=== PATIENT | female | born 1950 | race Hispanic/Latino ===

== ENCOUNTER → 2021-08-17 | Outpatient (CLI) | payer MEDICARE ==
[~2021-08-17] MED LIST: ATOR10TA69 PO; CARV12.511 PO; CHOL100018 PO; FENO134C PO; FISH1CAP49 PO; FOLI1TAB35 PO; INSU100V12 SQ; L.AC1CAP6 PO; PHOSLOC PO; VITA400T7 PO
== END | disposition home or self-care (01) ==
LOC: SHCH 08:04
PROVIDERS: ATTEND Internal Medicine Cardiovascular Disease
DX: I35.2 Nonrheumatic aortic (valve) stenosis with insufficiency (principal); I51.7 Cardiomegaly
CPT/HCPCS: 93306; 93356

== ENCOUNTER 2022-03-28 13:24 | Inpatient (IN) | payer MEDICARE ==
[~2022-03-28] VITALS: Ht 157.5 cm; Wt 85.7 kg
[~2022-03-28 13:24] MED LIST changes: +ETOMIDATE 20MG VIAL IVP ONE; -FENO134C PO; +FENO134C21 PO; +ROCURONIUM BROMIDE 10MG/1ML 5ML VL IV ONE
[2022-03-28 13:41] LABS: ABG BASE EXCESS -5.5 mmol/L (-2.0-3.0); ABG HCO3 17.4 mmol/L (21.0-28.0); ABG OXYGEN SATURATION 80.8 % (95.0-99.0); ABG PCO2 28 mmHg (32-45)
[2022-03-28] MEDS ORDERED: ALBUTEROL INHALER 90MCG/INH IH ONE (14:00)
[2022-03-28] MEDS ORDERED: DEXAMETHASONE SOD PHOSPHATE 4 MG/ML 1ML VIAL IVP ONE (14:00)
[2022-03-28 14:12] LABS: CREATININE 1.5 mg/dL (0.5-1.5); POTASSIUM 4.9 mmol/L (3.5-5.1)
[2022-03-28 14:16] LABS: ALBUMIN 2.5 g/dL (3.5-5.0)
[2022-03-28 14:25] LABS: BASOPHILS % (AUTO) 0.2 % (0.0-5.0); EOSINOPHILS % (AUTO) 0.2 % (0.0-8.0); HEMATOCRIT 43.5 % (36-48); LYMPHOCYTES % (AUTO) 18.5 % (21.0-51.0); MEAN CORPUSCULAR HEMOGLOBIN 25.7 pg (27.0-33.0); MEAN CORPUSCULAR HGB CONC 30.8 g/dL (32.0-36.0); MEAN CORPUSCULAR VOLUME 83.3 fL (79-99); MONOCYTES % (AUTO) 6.3 % (3.0-13.0); PLATELET COUNT (AUTO) 159 K/uL (130-400); RED BLOOD CELL COUNT(AUTO) 5.22 MIL/uL (4.00-5.50); RED CELL DISTRIBUTION WIDTH 13.2 % (11.0-15.5); WHITE BLOOD COUNT (AUTO) 4.9 K/uL (4.8-10.8)
[2022-03-28 15:12] LABS: B-TYPE NATRIURETIC PEPTIDE 340 pg/mL (0-100)
[2022-03-28 16:27] LABS: HEMOGLOBIN A1C 7.5 % (4.0-6.0)
[2022-03-28] MEDS ORDERED: ALBUTEROL INHALER 90MCG/INH IH PRN (16:30)
[2022-03-28] MEDS ORDERED: PHARMACY COMMUNICATION MISC SCH ×3 (16:30→20:00)
[2022-03-28] MEDS: LEVOFLOXACIN 500 MG/D5W 100 ML 100 ML IV SCH (17:45)
[2022-03-28] MEDS: INSULIN HUMULIN R 100 UNIT/ML 3ML SQ SCH ×2 (17:46→22:00)
[2022-03-28] MEDS ORDERED: MYCO250C7 PO (18:16)
[2022-03-28] MEDS ORDERED: PRED5TAB PO (18:16)
[2022-03-28] MEDS ORDERED: TACR1CAP10 PO (18:16)
[2022-03-28] MEDS ORDERED: MAGN400T51 PO (18:16)
[2022-03-28] MEDS ORDERED: MULT-662 PO (18:16)
[2022-03-28] MEDS: INSULIN GLARGINE 100 UNITS/ML 10 ML VIAL SQ SCH (21:21)
[2022-03-28] MEDS: FAMOTIDINE 20MG VIAL IV SCH (21:21)
[2022-03-28] MEDS: MYCOPHENOLATE MOFETIL 250 MG CAPSULE PO SCH (21:21)
[2022-03-29] VITALS (23 sets, daily range): BP systolic 124–180; BP diastolic 63–106
[2022-03-29] MEDS ORDERED: SODIUM CHLORIDE 7% INHALATION 4 ML VIAL.NEB IH ONE ×2 (07:20→11:51)
[2022-03-29 07:23] LABS: HEMATOCRIT 42.3 % (36-48); LYMPHOCYTES % (AUTO) 14.6 % (21.0-51.0); MEAN CORPUSCULAR HEMOGLOBIN 25.9 pg (27.0-33.0); MEAN CORPUSCULAR HGB CONC 31.2 g/dL (32.0-36.0); MEAN CORPUSCULAR VOLUME 83.1 fL (79-99); NEUTROPHILS % (AUTO) 79.9 % (40.0-77.0); PLATELET COUNT (AUTO) 158 K/uL (130-400); RED BLOOD CELL COUNT(AUTO) 5.09 MIL/uL (4.00-5.50); WHITE BLOOD COUNT (AUTO) 3.8 K/uL (4.8-10.8)
[2022-03-29 07:43] LABS: ALBUMIN 2.3 g/dL (3.5-5.0); CREATININE 1.5 mg/dL (0.5-1.5); PHOSPHORUS 4.1 mg/dL (2.5-4.9); POTASSIUM 4.7 mmol/L (3.5-5.1); TOTAL PROTEIN, SERUM 6.9 g/dL (6.0-8.3)
[2022-03-29] MEDS ORDERED: TACROLIMUS 1 MG CAPSULE PO SCH (08:00)
[2022-03-29] MEDS ORDERED: DEXAMETHASONE SOD PHOSPHATE 4 MG/ML 1ML VIAL IV SCH (09:00)
[2022-03-29] MEDS ORDERED: PREDNISONE 5 MG TABLET PO SCH (09:00)
[2022-03-29] MEDS: LACTOBACILLUS RHAMNOSUS GG 1 EACH CAP.SPRINK PO SCH (09:10)
[2022-03-29] MEDS: Cholecalciferol (Vitamin D3) (Vitamin D3) 1,000 UNIT PO SCH (09:10)
[2022-03-29] MEDS: MYCOPHENOLATE MOFETIL 250 MG CAPSULE PO SCH (09:10)
[2022-03-29] MEDS: INSULIN HUMULIN R 100 UNIT/ML 3ML SQ SCH ×7 (09:18→20:35)
[2022-03-29] MEDS: ENOXAPARIN SODIUM 40 MG/0.4 ML SYRINGE SQ SCH (09:19)
[2022-03-29] MEDS: MAGNESIUM OXIDE 400 MG TABLET PO SCH (09:23)
[2022-03-29] MEDS: MULTIVITAMIN TABLET PO SCH (09:23)
[2022-03-29] MEDS: PHARMACY COMMUNICATION MISC SCH ×2 (09:30→13:30)
[2022-03-29] MEDS ORDERED: PHARMACY COMMUNICATION MISC SCH (14:00)
[2022-03-29] MEDS ORDERED: RENAL DOSE IV PRN (15:30)
[2022-03-29] MEDS ORDERED: DiphenhydrAMINE HCL 50 MG/ML VIAL IVP ONE ×2 (16:00→18:00)
[2022-03-29] MEDS ORDERED: ACETAMINOPHEN 650 MG/20.3 ML UDCUP NG ONE ×2 (16:00→18:00)
[2022-03-29] MEDS: SOLU-MEDROL 125MG VIAL IVP SCH ×2 (16:17→22:47)
[2022-03-29] MEDS: LEVOFLOXACIN 500 MG/D5W 100 ML 100 ML IV SCH (16:17)
[2022-03-29] MEDS ORDERED: TOCILIZUMAB 200MG VIAL 600 MG in 0.9%NACL 100ML 100 ML IV ONE ×2 (16:45→18:30)
[2022-03-29] MEDS ORDERED: COMPOUND IV REFRIGERATED 1 EACH IVSOLN MISC PRN (17:00)
[2022-03-29] MEDS: FAMOTIDINE 20MG VIAL IV SCH (20:26)
[2022-03-29] MEDS: INSULIN GLARGINE 100 UNITS/ML 10 ML VIAL SQ SCH (20:30)
[2022-03-30] VITALS (76 sets, daily range): BP systolic 43–179; BP diastolic 20–116
[2022-03-30] MEDS ORDERED: METOPROLOL TARTRATE 25 MG TAB ONE (00:03)
[2022-03-30] MEDS ORDERED: METOPROLOL SUCCINATE 50 MG TAB.SR.24H PO ONE (00:05)
[2022-03-30] MEDS: METOPROLOL SUCCINATE 25 MG TAB.SR.24H PO SCH (00:36)
[2022-03-30] MEDS: ACETAMINOPHEN 325 MG TAB PO PRN ×2 (03:26→22:54)
[2022-03-30 03:40] LABS: HEMATOCRIT 43.9 % (36-48); LYMPHOCYTES % (AUTO) 14.7 % (21.0-51.0); MEAN CORPUSCULAR HEMOGLOBIN 25.9 pg (27.0-33.0); MEAN CORPUSCULAR VOLUME 83.6 fL (79-99); MONOCYTES % (AUTO) 2.6 % (3.0-13.0); NEUTROPHILS % (AUTO) 82.4 % (40.0-77.0); PLATELET COUNT (AUTO) 166 K/uL (130-400); RED BLOOD CELL COUNT(AUTO) 5.25 MIL/uL (4.00-5.50); RED CELL DISTRIBUTION WIDTH 13.1 % (11.0-15.5); WHITE BLOOD COUNT (AUTO) 3.1 K/uL (4.8-10.8)
[2022-03-30 04:07] LABS: ALBUMIN 2.3 g/dL (3.5-5.0); CREATININE 1.7 mg/dL (0.5-1.5); PHOSPHORUS 3.9 mg/dL (2.5-4.9); POTASSIUM 4.7 mmol/L (3.5-5.1); TOTAL PROTEIN, SERUM 6.9 g/dL (6.0-8.3)
[2022-03-30] MEDS: CLONIDINE HCL 0.1 MG TABLET PO PRN ×2 (05:49→20:55)
[2022-03-30 07:21] LABS: ABG HCO3 18.4 mmol/L (21.0-28.0); ABG OXYGEN SATURATION 93.5 % (95.0-99.0); ABG PCO2 30 mmHg (32-45)
[2022-03-30] MEDS: MAGNESIUM OXIDE 400 MG TABLET PO SCH (08:27)
[2022-03-30] MEDS: ENOXAPARIN SODIUM 40 MG/0.4 ML SYRINGE SQ SCH (08:27)
[2022-03-30] MEDS: SOLU-MEDROL 125MG VIAL IVP SCH ×3 (08:27→22:53)
[2022-03-30] MEDS: Cholecalciferol (Vitamin D3) (Vitamin D3) 1,000 UNIT PO SCH (08:28)
[2022-03-30] MEDS: MULTIVITAMIN TABLET PO SCH (08:28)
[2022-03-30] MEDS: LACTOBACILLUS RHAMNOSUS GG 1 EACH CAP.SPRINK PO SCH (08:28)
[2022-03-30] MEDS: INSULIN HUMULIN R 100 UNIT/ML 3ML SQ SCH ×8 (08:29→20:51)
[2022-03-30] MEDS: LEVOFLOXACIN 500 MG/D5W 100 ML 100 ML IV SCH (16:39)
[2022-03-30] MEDS: FAMOTIDINE 20MG VIAL IV SCH (20:12)
[2022-03-30] MEDS: INSULIN GLARGINE 100 UNITS/ML 10 ML VIAL SQ SCH (20:13)
[2022-03-31] VITALS (29 sets, daily range): BP systolic 80–184; BP diastolic 32–110
[2022-03-31 03:49] LABS: HEMATOCRIT 42.8 % (36-48); MEAN CORPUSCULAR HGB CONC 32.2 g/dL (32.0-36.0); MEAN CORPUSCULAR VOLUME 80.8 fL (79-99); RED BLOOD CELL COUNT(AUTO) 5.3 MIL/uL (4.00-5.50); RED CELL DISTRIBUTION WIDTH 13.1 % (11.0-15.5); WHITE BLOOD COUNT (AUTO) 5.4 K/uL (4.8-10.8)
[2022-03-31 04:10] LABS: CREATININE 1.8 mg/dL (0.5-1.5); MAGNESIUM 2.5 mg/dL (1.80-2.40)
[2022-03-31 05:43] LABS: CRP QUANTITATIVE 58.1 mg/L (0.00-9.0); MAGNESIUM 2.6 mg/dL (1.80-2.40)
[2022-03-31] MEDS: SOLU-MEDROL 125MG VIAL IVP SCH ×3 (06:12→22:40)
[2022-03-31] MEDS: INSULIN GLARGINE 100 UNITS/ML 10 ML VIAL SQ SCH ×2 (06:13→20:28)
[2022-03-31] MEDS: INSULIN HUMULIN R 100 UNIT/ML 3ML SQ SCH ×7 (06:14→20:32)
[2022-03-31] MEDS: PANTOPRAZOLE 40 MG/VIAL IVP SCH (09:54)
[2022-03-31] MEDS: LACTOBACILLUS RHAMNOSUS GG 1 EACH CAP.SPRINK PO SCH (09:54)
[2022-03-31] MEDS: MULTIVITAMIN TABLET PO SCH (09:54)
[2022-03-31] MEDS: MAGNESIUM OXIDE 400 MG TABLET PO SCH (09:54)
[2022-03-31] MEDS: METOPROLOL SUCCINATE 25 MG TAB.SR.24H PO SCH (09:54)
[2022-03-31] MEDS: ENOXAPARIN SODIUM 40 MG/0.4 ML SYRINGE SQ SCH (09:54)
[2022-03-31] MEDS: Cholecalciferol (Vitamin D3) (Vitamin D3) 1,000 UNIT PO SCH (09:55)
[2022-03-31] MEDS ORDERED: FUROSEMIDE 40MG VIAL IV SCH (11:30)
[2022-03-31] MEDS: LEVOFLOXACIN 500 MG/D5W 100 ML 100 ML IV SCH (17:23)
[2022-03-31] MEDS: CLONIDINE HCL 0.1 MG TABLET PO PRN (22:11)
[2022-03-31] MEDS: ACETAMINOPHEN 325 MG TAB PO PRN (22:12)
[2022-04-01] VITALS (24 sets, daily range): BP systolic 103–191; BP diastolic 49–112
[2022-04-01] MEDS ORDERED: ALPRAZOLAM 0.25 MG TABLET PO PRN (00:30)
[2022-04-01] MEDS ORDERED: ALPRAZOLAM 0.5 MG TABLET PO PRN (00:30)
[2022-04-01 04:20] LABS: HEMATOCRIT 42.8 % (36-48); MEAN CORPUSCULAR HEMOGLOBIN 26.2 pg (27.0-33.0); MEAN CORPUSCULAR VOLUME 81.8 fL (79-99); RED BLOOD CELL COUNT(AUTO) 5.23 MIL/uL (4.00-5.50); RED CELL DISTRIBUTION WIDTH 13.2 % (11.0-15.5); WHITE BLOOD COUNT (AUTO) 6.3 K/uL (4.8-10.8)
[2022-04-01 04:51] LABS: CREATININE 2.1 mg/dL (0.5-1.5); MAGNESIUM 2.5 mg/dL (1.80-2.40); POTASSIUM 4.5 mmol/L (3.5-5.1)
[2022-04-01] MEDS: SOLU-MEDROL 125MG VIAL IVP SCH ×3 (06:30→22:11)
[2022-04-01] MEDS: INSULIN HUMULIN R 100 UNIT/ML 3ML SQ SCH ×7 (06:31→21:02)
[2022-04-01] MEDS: INSULIN GLARGINE 100 UNITS/ML 10 ML VIAL SQ SCH ×2 (06:34→21:03)
[2022-04-01] MEDS: LACTOBACILLUS RHAMNOSUS GG 1 EACH CAP.SPRINK PO SCH (09:24)
[2022-04-01] MEDS: MULTIVITAMIN TABLET PO SCH (09:24)
[2022-04-01] MEDS: PANTOPRAZOLE 40 MG/VIAL IVP SCH (09:24)
[2022-04-01] MEDS: MAGNESIUM OXIDE 400 MG TABLET PO SCH (09:24)
[2022-04-01] MEDS: METOPROLOL SUCCINATE 25 MG TAB.SR.24H PO SCH (09:24)
[2022-04-01] MEDS: Cholecalciferol (Vitamin D3) (Vitamin D3) 1,000 UNIT PO SCH (09:24)
[2022-04-01] MEDS: ENOXAPARIN SODIUM 40 MG/0.4 ML SYRINGE SQ SCH (09:25)
[2022-04-01] MEDS ORDERED: LOPERAMIDE HCL 2 MG CAP PO PRN (09:30)
[2022-04-01] MEDS: LEVOFLOXACIN 500 MG/D5W 100 ML 100 ML IV SCH (16:57)
[2022-04-01] MEDS: ACETAMINOPHEN 325 MG TAB PO PRN (22:18)
[2022-04-02] VITALS (25 sets, daily range): BP systolic 92–171; BP diastolic 40–84
[2022-04-02 04:21] LABS: HEMATOCRIT 43.3 % (36-48); MEAN CORPUSCULAR HEMOGLOBIN 25.8 pg (27.0-33.0); MEAN CORPUSCULAR HGB CONC 31.9 g/dL (32.0-36.0); MEAN CORPUSCULAR VOLUME 81.1 fL (79-99); RED BLOOD CELL COUNT(AUTO) 5.34 MIL/uL (4.00-5.50); RED CELL DISTRIBUTION WIDTH 13.2 % (11.0-15.5); WHITE BLOOD COUNT (AUTO) 8.2 K/uL (4.8-10.8)
[2022-04-02 04:33] LABS: CREATININE 1.9 mg/dL (0.5-1.5); MAGNESIUM 2.8 mg/dL (1.80-2.40); POTASSIUM 4.6 mmol/L (3.5-5.1)
[2022-04-02] MEDS: INSULIN HUMULIN R 100 UNIT/ML 3ML SQ SCH ×7 (06:15→20:51)
[2022-04-02] MEDS: SOLU-MEDROL 125MG VIAL IVP SCH ×3 (06:39→22:43)
[2022-04-02] MEDS: INSULIN GLARGINE 100 UNITS/ML 10 ML VIAL SQ SCH ×2 (06:51→20:55)
[2022-04-02] MEDS: LACTOBACILLUS RHAMNOSUS GG 1 EACH CAP.SPRINK PO SCH (08:33)
[2022-04-02] MEDS: MAGNESIUM OXIDE 400 MG TABLET PO SCH (08:33)
[2022-04-02] MEDS: PANTOPRAZOLE 40 MG/VIAL IVP SCH (08:33)
[2022-04-02] MEDS: MULTIVITAMIN TABLET PO SCH (08:33)
[2022-04-02] MEDS: METOPROLOL SUCCINATE 25 MG TAB.SR.24H PO SCH (08:33)
[2022-04-02] MEDS: ENOXAPARIN SODIUM 40 MG/0.4 ML SYRINGE SQ SCH (08:33)
[2022-04-02] MEDS: Cholecalciferol (Vitamin D3) (Vitamin D3) 1,000 UNIT PO SCH (08:35)
[2022-04-02] MEDS: LEVOFLOXACIN 500 MG/D5W 100 ML 100 ML IV SCH (16:03)
[2022-04-02 19:02] LABS: APPEARANCE,URINE CLEAR (CLEAR); BILIRUBIN,URINE NEGATIVE (NEGATIVE); COLOR,URINE YELLOW (YELLOW); GLUCOSE, URINE (UA) NEGATIVE (NEGATIVE); KETONES,URINE NEGATIVE (NEGATIVE); LEUKOCYTE ESTERASE ,URINE NEGATIVE (NEGATIVE); NITRATE,URINE NEGATIVE (NEGATIVE); OCCULT BLOOD,URINE NEGATIVE (NEGATIVE); PH,URINE 5.5 (5.0-8.0); PROTEIN,URINE TRACE mg/dL (NEGATIVE); UROBILINOGEN,URINE 0.2 mg/dL (0.2-1.0)
[2022-04-02 19:13] LABS: BACTERIA,URINE Rare /HPF (None Seen); MUCUS,URINE None Seen LPF (None Seen); SQUAMOUS EPITHELIAL CELL,UR Few /HPF (0-2); URIC ACID CRYSTALS,URINE Rare /LPF (None Seen); WBC,URINE 0-1 /HPF (0-1)
[2022-04-02] MEDS: ACETAMINOPHEN 325 MG TAB PO PRN (22:44)
[2022-04-03] VITALS (24 sets, daily range): BP systolic 83–160; BP diastolic 39–86
[2022-04-03 04:27] LABS: HEMATOCRIT 44.2 % (36-48); MEAN CORPUSCULAR HEMOGLOBIN 25.7 pg (27.0-33.0); MEAN CORPUSCULAR HGB CONC 31.4 g/dL (32.0-36.0); MEAN CORPUSCULAR VOLUME 81.9 fL (79-99); PLATELET COUNT (AUTO) 141 K/uL (130-400); RED CELL DISTRIBUTION WIDTH 13.2 % (11.0-15.5); WHITE BLOOD COUNT (AUTO) 8.2 K/uL (4.8-10.8)
[2022-04-03 04:32] LABS: BAND NEUTROPHILS % (MANUAL) 2 % (0-2); LYMPHOCYTES % (MANUAL) 4 % (22-44); MAN.DIFF COMMENT-IMPRESSION MANUAL DIFFERENTIAL; MONOCYTES % (MANUAL) 2 % (2-9); PLATELET MORPHOLOGY COMMENT ADEQUATE; SEGMENTED NEUTROPHILS % 92 % (40-70)
[2022-04-03 04:44] LABS: ALBUMIN 2.4 g/dL (3.5-5.0); CREATININE 1.5 mg/dL (0.5-1.5); POTASSIUM 4.9 mmol/L (3.5-5.1)
[2022-04-03] MEDS: INSULIN HUMULIN R 100 UNIT/ML 3ML SQ SCH ×7 (05:30→20:46)
[2022-04-03] MEDS: SOLU-MEDROL 125MG VIAL IVP SCH ×3 (06:10→23:20)
[2022-04-03] MEDS: INSULIN GLARGINE 100 UNITS/ML 10 ML VIAL SQ SCH ×2 (06:11→20:47)
[2022-04-03 08:23] LABS: ABG BASE EXCESS 2.1 mmol/L (-2.0-3.0); ABG HCO3 26.5 mmol/L (21.0-28.0); ABG OXYGEN SATURATION 95.5 % (95.0-99.0); ABG PCO2 41 mmHg (32-45)
[2022-04-03] MEDS: PANTOPRAZOLE 40 MG/VIAL IVP SCH (09:07)
[2022-04-03] MEDS: ENOXAPARIN SODIUM 40 MG/0.4 ML SYRINGE SQ SCH ×2 (09:07→20:45)
[2022-04-03] MEDS: MAGNESIUM OXIDE 400 MG TABLET PO SCH (09:07)
[2022-04-03] MEDS: METOPROLOL SUCCINATE 25 MG TAB.SR.24H PO SCH (09:07)
[2022-04-03] MEDS: LACTOBACILLUS RHAMNOSUS GG 1 EACH CAP.SPRINK PO SCH (09:08)
[2022-04-03] MEDS: MULTIVITAMIN TABLET PO SCH (09:08)
[2022-04-03] MEDS: Cholecalciferol (Vitamin D3) (Vitamin D3) 1,000 UNIT PO SCH (09:10)
[2022-04-03] MEDS: GUAIFENESIN SUGAR-FREE 100 MG/5 ML UDCUP PO PRN ×2 (11:35→17:03)
[2022-04-03] MEDS: LEVOFLOXACIN 500 MG/D5W 100 ML 100 ML IV SCH (15:52)
[2022-04-03] MEDS: ACETAMINOPHEN 325 MG TAB PO PRN (23:19)
[2022-04-04] VITALS (22 sets, daily range): BP systolic 99–185; BP diastolic 41–110
[2022-04-04 03:32] LABS: HEMATOCRIT 44.5 % (36-48); MEAN CORPUSCULAR HEMOGLOBIN 25.7 pg (27.0-33.0); NUCLEATED RED BLOOD CELLS 0.2 % (0.0-0.19); PLATELET COUNT (AUTO) 126 K/uL (130-400); RED BLOOD CELL COUNT(AUTO) 5.36 MIL/uL (4.00-5.50); RED CELL DISTRIBUTION WIDTH 13.3 % (11.0-15.5); WHITE BLOOD COUNT (AUTO) 8.2 K/uL (4.8-10.8)
[2022-04-04 03:54] LABS: ALBUMIN 2.3 g/dL (3.5-5.0); CREATININE 1.4 mg/dL (0.5-1.5); MAGNESIUM 2.6 mg/dL (1.80-2.40); POTASSIUM 4.9 mmol/L (3.5-5.1); TOTAL PROTEIN, SERUM 5.8 g/dL (6.0-8.3)
[2022-04-04 04:32] LABS: BAND NEUTROPHILS % (MANUAL) 7 % (0-2); LYMPHOCYTES % (MANUAL) 10 % (22-44); MONOCYTES % (MANUAL) 3 % (2-9); SEGMENTED NEUTROPHILS % 80 % (40-70)
[2022-04-04 04:33] LABS: MAN.DIFF COMMENT-IMPRESSION MANUAL DIFFERENTIAL; PLATELET MORPHOLOGY COMMENT ADEQUATE
[2022-04-04] MEDS: INSULIN GLARGINE 100 UNITS/ML 10 ML VIAL SQ SCH ×2 (06:33→20:53)
[2022-04-04] MEDS: SOLU-MEDROL 125MG VIAL IVP SCH ×2 (06:33→16:24)
[2022-04-04] MEDS: INSULIN HUMULIN R 100 UNIT/ML 3ML SQ SCH ×7 (06:34→20:54)
[2022-04-04 07:17] LABS: HEPATITIS C VIRUS ANTIBODY <0.1 s/co ratio (0.0-0.9)
[2022-04-04] MEDS: MAGNESIUM OXIDE 400 MG TABLET PO SCH (07:54)
[2022-04-04] MEDS: MULTIVITAMIN TABLET PO SCH (07:54)
[2022-04-04] MEDS: PANTOPRAZOLE 40 MG/VIAL IVP SCH (07:54)
[2022-04-04] MEDS: METOPROLOL SUCCINATE 25 MG TAB.SR.24H PO SCH (07:54)
[2022-04-04] MEDS: LACTOBACILLUS RHAMNOSUS GG 1 EACH CAP.SPRINK PO SCH (07:54)
[2022-04-04] MEDS: ENOXAPARIN SODIUM 40 MG/0.4 ML SYRINGE SQ SCH ×2 (07:55→20:52)
[2022-04-04] MEDS: Cholecalciferol (Vitamin D3) (Vitamin D3) 1,000 UNIT PO SCH (09:00)
[2022-04-04] MEDS: ACETAMINOPHEN 325 MG TAB PO PRN (22:33)
[2022-04-04] MEDS: CLONIDINE HCL 0.1 MG TABLET PO PRN (22:34)
[2022-04-04] MEDS: SOLU-MEDROL 40MG VIAL IVP SCH (22:34)
[2022-04-05] VITALS (22 sets, daily range): BP systolic 96–155; BP diastolic 31–121
[2022-04-05 03:46] LABS: BASOPHILS % (AUTO) 0.1 % (0.0-5.0); EOSINOPHILS % (AUTO) 0.8 % (0.0-8.0); HEMATOCRIT 44.2 % (36-48); LYMPHOCYTES % (AUTO) 3.6 % (21.0-51.0); MEAN CORPUSCULAR HEMOGLOBIN 26.1 pg (27.0-33.0); MEAN CORPUSCULAR HGB CONC 31.2 g/dL (32.0-36.0); MEAN CORPUSCULAR VOLUME 83.7 fL (79-99); MONOCYTES % (AUTO) 1.8 % (3.0-13.0); NEUTROPHILS % (AUTO) 91.2 % (40.0-77.0); PLATELET COUNT (AUTO) 178 K/uL (130-400); RED BLOOD CELL COUNT(AUTO) 5.28 MIL/uL (4.00-5.50); RED CELL DISTRIBUTION WIDTH 13.2 % (11.0-15.5); WHITE BLOOD COUNT (AUTO) 11.5 K/uL (4.8-10.8)
[2022-04-05 04:01] LABS: B-TYPE NATRIURETIC PEPTIDE 129 pg/mL (0-100)
[2022-04-05 04:03] LABS: ALANINE AMINOTRANSFERASE 58 U/L (12-78); ALBUMIN 2.5 g/dL (3.5-5.0); ASPARTATE AMINOTRANSFERASE 44 U/L (10-37); CARBON DIOXIDE 26 mmol/L (21-32); CHLORIDE 105 mmol/L (101-111); CREATININE 1.2 mg/dL (0.5-1.5); GLOMERULAR FILTR. RATE CALC 47 mL/min (>60); GLUCOSE,RANDOM 109 mg/dL (70-105); POTASSIUM 4.7 mmol/L (3.5-5.1); SODIUM SERUM 140 mmol/L (136-145); TOTAL PROTEIN, SERUM 5.9 g/dL (6.0-8.3); UREA NITROGEN, BLOOD 52 mg/dL (7-18)
[2022-04-05 04:10] LABS: CRP QUANTITATIVE < 2.00 mg/L (0.00-9.0)
[2022-04-05 04:45] LABS: ERYTHROCYTE SEDIMENTATION RATE 3 MM/HR (0-30)
[2022-04-05] MEDS: INSULIN HUMULIN R 100 UNIT/ML 3ML SQ SCH ×7 (06:50→21:21)
[2022-04-05] MEDS: SOLU-MEDROL 40MG VIAL IVP SCH ×3 (07:06→23:02)
[2022-04-05] MEDS: INSULIN GLARGINE 100 UNITS/ML 10 ML VIAL SQ SCH ×2 (07:11→21:18)
[2022-04-05] MEDS: PANTOPRAZOLE 40 MG/VIAL IVP SCH (10:47)
[2022-04-05] MEDS: MAGNESIUM OXIDE 400 MG TABLET PO SCH (10:47)
[2022-04-05] MEDS: METOPROLOL SUCCINATE 25 MG TAB.SR.24H PO SCH (10:48)
[2022-04-05] MEDS: MULTIVITAMIN TABLET PO SCH (10:48)
[2022-04-05] MEDS: Cholecalciferol (Vitamin D3) (Vitamin D3) 1,000 UNIT PO SCH (10:48)
[2022-04-05] MEDS: ENOXAPARIN SODIUM 40 MG/0.4 ML SYRINGE SQ SCH ×2 (10:48→21:17)
[2022-04-05] MEDS: LACTOBACILLUS RHAMNOSUS GG 1 EACH CAP.SPRINK PO SCH (10:48)
[2022-04-05] MEDS ORDERED: DEXAMETHASONE SOD PHOSPHATE 4 MG/ML 1ML VIAL IV SCH (17:00)
[2022-04-05 18:00] LABS: INR 1.2 (0.85-1.15); PROTHROMBIN TIME 12.9 SEC (9.6-11.6)
[2022-04-05 21:05] LABS: ABG BASE EXCESS 1.3 mmol/L (-2.0-3.0); ABG HCO3 26.6 mmol/L (21.0-28.0); ABG OXYGEN SATURATION 91.8 % (95.0-99.0); ABG PCO2 44 mmHg (32-45)
[2022-04-05 23:43] LABS: ABG BASE EXCESS 0.6 mmol/L (-2.0-3.0); ABG HCO3 25.4 mmol/L (21.0-28.0); ABG OXYGEN SATURATION 84.3 % (95.0-99.0); ABG PCO2 42 mmHg (32-45)
[2022-04-06] VITALS (24 sets, daily range): BP systolic 113–161; BP diastolic 34–95
[2022-04-06 01:36] LABS: ABG BASE EXCESS -0.2 mmol/L (-2.0-3.0); ABG HCO3 23.7 mmol/L (21.0-28.0); ABG OXYGEN SATURATION 93.8 % (95.0-99.0); ABG PCO2 36 mmHg (32-45)
[2022-04-06 04:49] LABS: BASOPHILS % (AUTO) 0.2 % (0.0-5.0); EOSINOPHILS % (AUTO) 3.3 % (0.0-8.0); HEMATOCRIT 46.8 % (36-48); MEAN CORPUSCULAR HEMOGLOBIN 25.8 pg (27.0-33.0); MEAN CORPUSCULAR VOLUME 83.4 fL (79-99); MONOCYTES % (AUTO) 1.3 % (3.0-13.0); NEUTROPHILS % (AUTO) 89.5 % (40.0-77.0); PLATELET COUNT (AUTO) 148 K/uL (130-400); RED BLOOD CELL COUNT(AUTO) 5.61 MIL/uL (4.00-5.50); RED CELL DISTRIBUTION WIDTH 13.4 % (11.0-15.5); WHITE BLOOD COUNT (AUTO) 12.3 K/uL (4.8-10.8)
[2022-04-06 05:13] LABS: ALANINE AMINOTRANSFERASE 60 U/L (12-78); ALBUMIN 2.6 g/dL (3.5-5.0); ASPARTATE AMINOTRANSFERASE 53 U/L (10-37); CARBON DIOXIDE 28 mmol/L (21-32); CHLORIDE 105 mmol/L (101-111); CREATININE 1.1 mg/dL (0.5-1.5); GLOMERULAR FILTR. RATE CALC 52 mL/min (>60); GLUCOSE,RANDOM 112 mg/dL (70-105); SODIUM SERUM 140 mmol/L (136-145); UREA NITROGEN, BLOOD 47 mg/dL (7-18)
[2022-04-06 05:40] LABS: B-TYPE NATRIURETIC PEPTIDE 84 pg/mL (0-100)
[2022-04-06 05:41] LABS: CRP QUANTITATIVE < 2.00 mg/L (0.00-9.0)
[2022-04-06] MEDS: INSULIN HUMULIN R 100 UNIT/ML 3ML SQ SCH ×5 (06:29→21:13)
[2022-04-06 06:34] LABS: ERYTHROCYTE SEDIMENTATION RATE 2 MM/HR (0-30)
[2022-04-06] MEDS: SOLU-MEDROL 40MG VIAL IVP SCH (06:35)
[2022-04-06] MEDS: INSULIN GLARGINE 100 UNITS/ML 10 ML VIAL SQ SCH ×2 (06:37→21:14)
[2022-04-06 06:47] LABS: ABG HCO3 24.8 mmol/L (21.0-28.0); ABG OXYGEN SATURATION 93.6 % (95.0-99.0); ABG PCO2 41 mmHg (32-45)
[2022-04-06] MEDS: MAGNESIUM OXIDE 400 MG TABLET PO SCH (08:13)
[2022-04-06] MEDS: PANTOPRAZOLE 40 MG/VIAL IVP SCH (08:13)
[2022-04-06] MEDS: LACTOBACILLUS RHAMNOSUS GG 1 EACH CAP.SPRINK PO SCH (08:13)
[2022-04-06] MEDS: MULTIVITAMIN TABLET PO SCH (08:13)
[2022-04-06] MEDS: ENOXAPARIN SODIUM 40 MG/0.4 ML SYRINGE SQ SCH ×2 (08:14→21:15)
[2022-04-06] MEDS: METOPROLOL SUCCINATE 25 MG TAB.SR.24H PO SCH (08:14)
[2022-04-06] MEDS: Cholecalciferol (Vitamin D3) (Vitamin D3) 1,000 UNIT PO SCH (08:15)
[2022-04-06] MEDS: SOLU-MEDROL 125MG VIAL IVP SCH ×2 (09:48→16:42)
[2022-04-06] MEDS ORDERED: SOLU-MEDROL 40MG VIAL IVP SCH (15:30)
[2022-04-07] VITALS (22 sets, daily range): BP systolic 82–155; BP diastolic 30–115
[2022-04-07] MEDS: ACETAMINOPHEN 325 MG TAB PO PRN (01:02)
[2022-04-07] MEDS: SOLU-MEDROL 125MG VIAL IVP SCH ×3 (02:22→17:13)
[2022-04-07 03:46] LABS: BASOPHILS % (AUTO) 0.1 % (0.0-5.0); EOSINOPHILS % (AUTO) 1.2 % (0.0-8.0); HEMATOCRIT 39.7 % (36-48); LYMPHOCYTES % (AUTO) 4.8 % (21.0-51.0); MEAN CORPUSCULAR HEMOGLOBIN 26.1 pg (27.0-33.0); MEAN CORPUSCULAR VOLUME 84.1 fL (79-99); MONOCYTES % (AUTO) 1.5 % (3.0-13.0); NEUTROPHILS % (AUTO) 89.9 % (40.0-77.0); PLATELET COUNT (AUTO) 121 K/uL (130-400); RED BLOOD CELL COUNT(AUTO) 4.72 MIL/uL (4.00-5.50); RED CELL DISTRIBUTION WIDTH 13.2 % (11.0-15.5); WHITE BLOOD COUNT (AUTO) 9.4 K/uL (4.8-10.8)
[2022-04-07 04:09] LABS: ALANINE AMINOTRANSFERASE 55 U/L (12-78); ALBUMIN 2.3 g/dL (3.5-5.0); ASPARTATE AMINOTRANSFERASE 42 U/L (10-37); CARBON DIOXIDE 29 mmol/L (21-32); CHLORIDE 103 mmol/L (101-111); CRP QUANTITATIVE < 2.00 mg/L (0.00-9.0); GLOMERULAR FILTR. RATE CALC 58 mL/min (>60); GLUCOSE,RANDOM 249 mg/dL (70-105); SODIUM SERUM 138 mmol/L (136-145); TOTAL PROTEIN, SERUM 5.4 g/dL (6.0-8.3); UREA NITROGEN, BLOOD 46 mg/dL (7-18)
[2022-04-07 04:21] LABS: B-TYPE NATRIURETIC PEPTIDE 94 pg/mL (0-100)
[2022-04-07 04:46] LABS: ERYTHROCYTE SEDIMENTATION RATE 2 MM/HR (0-30)
[2022-04-07] MEDS: INSULIN GLARGINE 100 UNITS/ML 10 ML VIAL SQ SCH ×2 (06:27→20:57)
[2022-04-07] MEDS: INSULIN HUMULIN R 100 UNIT/ML 3ML SQ SCH ×4 (06:29→20:58)
[2022-04-07] MEDS: PANTOPRAZOLE 40 MG/VIAL IVP SCH (08:50)
[2022-04-07] MEDS: MAGNESIUM OXIDE 400 MG TABLET PO SCH (08:51)
[2022-04-07] MEDS: METOPROLOL SUCCINATE 25 MG TAB.SR.24H PO SCH (08:51)
[2022-04-07] MEDS: LACTOBACILLUS RHAMNOSUS GG 1 EACH CAP.SPRINK PO SCH (08:51)
[2022-04-07] MEDS: MULTIVITAMIN TABLET PO SCH (08:51)
[2022-04-07] MEDS: Cholecalciferol (Vitamin D3) (Vitamin D3) 1,000 UNIT PO SCH (08:51)
[2022-04-07] MEDS: ENOXAPARIN SODIUM 40 MG/0.4 ML SYRINGE SQ SCH ×2 (08:52→20:56)
[2022-04-07 09:48] LABS: ABG BASE EXCESS 2.9 mmol/L (-2.0-3.0); ABG HCO3 27.5 mmol/L (21.0-28.0); ABG OXYGEN SATURATION 91.4 % (95.0-99.0); ABG PCO2 42 mmHg (32-45)
[2022-04-07] MEDS ORDERED: FUROSEMIDE 20MG VIAL IV SCH (13:00)
[2022-04-07] MEDS: MAGNESIUM HYDROXIDE 30 ML/UDCUP PO PRN ×3 (15:23→23:36)
[2022-04-07] MEDS: FUROSEMIDE 20MG VIAL IV SCH (20:56)
[2022-04-07] MEDS ORDERED: BISACODYL 10 MG SUPP.RECT RC ONE (21:30)
[2022-04-08] VITALS (27 sets, daily range): BP systolic 102–173; BP diastolic 30–98
[2022-04-08] MEDS: FUROSEMIDE 20MG VIAL IV SCH ×2 (01:59→08:00)
[2022-04-08] MEDS: SOLU-MEDROL 125MG VIAL IVP SCH ×3 (01:59→18:00)
[2022-04-08] MEDS: ACETAMINOPHEN 325 MG TAB PO PRN (04:25)
[2022-04-08 04:42] LABS: BASOPHILS % (AUTO) 0.2 % (0.0-5.0); EOSINOPHILS % (AUTO) 0.3 % (0.0-8.0); HEMATOCRIT 45.5 % (36-48); LYMPHOCYTES % (AUTO) 3.7 % (21.0-51.0); MEAN CORPUSCULAR HEMOGLOBIN 26.1 pg (27.0-33.0); MEAN CORPUSCULAR VOLUME 84.3 fL (79-99); MONOCYTES % (AUTO) 1.2 % (3.0-13.0); NEUTROPHILS % (AUTO) 91.8 % (40.0-77.0); PLATELET COUNT (AUTO) 141 K/uL (130-400); RED CELL DISTRIBUTION WIDTH 13.3 % (11.0-15.5); WHITE BLOOD COUNT (AUTO) 16.6 K/uL (4.8-10.8)
[2022-04-08 05:07] LABS: ALBUMIN 2.7 g/dL (3.5-5.0)
[2022-04-08] MEDS: POLYETHYLENE GLYCOL 3350 17 GM POWD.PACK PO ONE ×2 (05:23→05:52)
[2022-04-08 06:29] LABS: ABG BASE EXCESS 4.2 mmol/L (-2.0-3.0); ABG HCO3 28.5 mmol/L (21.0-28.0); ABG OXYGEN SATURATION 78.5 % (95.0-99.0); ABG PCO2 41 mmHg (32-45)
[2022-04-08] MEDS: INSULIN HUMULIN R 100 UNIT/ML 3ML SQ SCH ×4 (06:46→20:25)
[2022-04-08] MEDS: INSULIN GLARGINE 100 UNITS/ML 10 ML VIAL SQ SCH ×2 (06:46→20:24)
[2022-04-08] MEDS: PANTOPRAZOLE 40 MG/VIAL IVP SCH (08:28)
[2022-04-08] MEDS: TACROLIMUS 1 MG CAPSULE PO SCH ×2 (08:28→20:13)
[2022-04-08] MEDS: LACTOBACILLUS RHAMNOSUS GG 1 EACH CAP.SPRINK PO SCH (08:28)
[2022-04-08] MEDS: MYCOPHENOLATE MOFETIL 250 MG CAPSULE PO SCH ×2 (08:28→20:13)
[2022-04-08] MEDS: MULTIVITAMIN TABLET PO SCH (08:28)
[2022-04-08] MEDS: METOPROLOL SUCCINATE 25 MG TAB.SR.24H PO SCH (08:28)
[2022-04-08] MEDS: MAGNESIUM OXIDE 400 MG TABLET PO SCH (08:28)
[2022-04-08] MEDS: ENOXAPARIN SODIUM 40 MG/0.4 ML SYRINGE SQ SCH ×2 (08:28→20:14)
[2022-04-08] MEDS: Cholecalciferol (Vitamin D3) (Vitamin D3) 1,000 UNIT PO SCH (09:00)
[2022-04-08] MEDS ORDERED: FENTANYL 2500MCG+NS 250ML 250 ML IV ONE (15:25)
[2022-04-08] MEDS: PROPOFOL 1000 MG/100 ML IV PRN ×2 (16:06→19:45)
[2022-04-08] MEDS ORDERED: LUBIPROSTONE 24 MCG CAP PO SCH (17:00)
[2022-04-08 17:06] LABS: ABG BASE EXCESS 7.5 mmol/L (-2.0-3.0); ABG HCO3 33.4 mmol/L (21.0-28.0); ABG OXYGEN SATURATION 88.8 % (95.0-99.0); ABG PCO2 51 mmHg (32-45)
[2022-04-09] VITALS (58 sets, daily range): BP systolic 46–150; BP diastolic 32–108
[2022-04-09] MEDS: SOLU-MEDROL 125MG VIAL IVP SCH ×3 (01:02→17:31)
[2022-04-09 03:51] LABS: BASOPHILS % (AUTO) 0.3 % (0.0-5.0); EOSINOPHILS % (AUTO) 0.1 % (0.0-8.0); HEMATOCRIT 48.4 % (36-48); MEAN CORPUSCULAR HGB CONC 30.2 g/dL (32.0-36.0); MEAN CORPUSCULAR VOLUME 86.1 fL (79-99); MONOCYTES % (AUTO) 1.1 % (3.0-13.0); NEUTROPHILS % (AUTO) 95.4 % (40.0-77.0); NUCLEATED RED BLOOD CELLS 0.1 % (0.0-0.19); PLATELET COUNT (AUTO) 121 K/uL (130-400); RED BLOOD CELL COUNT(AUTO) 5.62 MIL/uL (4.00-5.50); RED CELL DISTRIBUTION WIDTH 13.5 % (11.0-15.5); WHITE BLOOD COUNT (AUTO) 22.4 K/uL (4.8-10.8)
[2022-04-09 04:09] LABS: ALANINE AMINOTRANSFERASE 33 U/L (12-78); ALBUMIN 2.5 g/dL (3.5-5.0); ASPARTATE AMINOTRANSFERASE 23 U/L (10-37); CARBON DIOXIDE 31 mmol/L (21-32); CHLORIDE 100 mmol/L (101-111); CREATININE 1.3 mg/dL (0.5-1.5); GLOMERULAR FILTR. RATE CALC 43 mL/min (>60); GLUCOSE,RANDOM 121 mg/dL (70-105); POTASSIUM 5.8 mmol/L (3.5-5.1); SODIUM SERUM 138 mmol/L (136-145); TOTAL PROTEIN, SERUM 5.9 g/dL (6.0-8.3); UREA NITROGEN, BLOOD 57 mg/dL (7-18)
[2022-04-09 04:20] LABS: B-TYPE NATRIURETIC PEPTIDE 145 pg/mL (0-100)
[2022-04-09 04:31] LABS: CRP QUANTITATIVE < 2.00 mg/L (0.00-9.0)
[2022-04-09] MEDS: INSULIN HUMULIN R 100 UNIT/ML 3ML SQ SCH ×4 (06:22→20:46)
[2022-04-09] MEDS: INSULIN GLARGINE 100 UNITS/ML 10 ML VIAL SQ SCH ×2 (07:30→20:45)
[2022-04-09] MEDS ORDERED: KAYEXALATE 15GM/60ML PO SCH (09:00)
[2022-04-09] MEDS ORDERED: NOREPINEPHRINE 8MG/NS 250ML PREMIX IV SCH (09:00)
[2022-04-09] MEDS: Cholecalciferol (Vitamin D3) (Vitamin D3) 1,000 UNIT PO SCH (09:00)
[2022-04-09] MEDS ORDERED: NOREPINEPHRINE BITARTRATE 8 MG/NS 250ML IV SCH ×2 (09:00)
[2022-04-09] MEDS: METOPROLOL SUCCINATE 25 MG TAB.SR.24H PO SCH (09:00)
[2022-04-09] MEDS ORDERED: DEXTROSE 5 % AND 0.9 % NACL 1,000 ML IV ONE (09:24)
[2022-04-09] MEDS ORDERED: MIDAZOLAM 50MG-0.9% NS 50ML 50 ML BAG IV SCH (09:30)
[2022-04-09] MEDS ORDERED: MIDAZOLAM 100MG-0.9% NS 100ML 100 ML IV ONE (09:32)
[2022-04-09] MEDS: PANTOPRAZOLE 40 MG/VIAL IVP SCH (10:56)
[2022-04-09] MEDS: MYCOPHENOLATE MOFETIL 250 MG CAPSULE PO SCH ×2 (10:56→20:41)
[2022-04-09] MEDS: LACTOBACILLUS RHAMNOSUS GG 1 EACH CAP.SPRINK PO SCH (10:57)
[2022-04-09] MEDS: MULTIVITAMIN TABLET PO SCH (11:00)
[2022-04-09] MEDS ORDERED: 0.9%NACL 1000ML 1,000 ML IV SCH (11:00)
[2022-04-09] MEDS: MAGNESIUM OXIDE 400 MG TABLET PO SCH (11:00)
[2022-04-09] MEDS: TACROLIMUS 1 MG CAPSULE PO SCH ×2 (11:00→20:41)
[2022-04-09] MEDS: ENOXAPARIN SODIUM 40 MG/0.4 ML SYRINGE SQ SCH ×2 (11:01→20:44)
[2022-04-09] MEDS: DEXTROSE 5 % AND 0.9 % NACL 1,000 ML IV SCH ×2 (11:02→19:32)
[2022-04-09] MEDS: MEROPENEM 1 GM VIAL IVP SCH ×2 (11:57→22:47)
[2022-04-09] MEDS ORDERED: SODIUM CHLORIDE 7% INHALATION 4 ML VIAL.NEB IH ONE (12:06)
[2022-04-09] MEDS: LINEZOLID 600 MG/ISO-OSM 300 ML IV SCH ×2 (13:11→22:47)
[2022-04-09] MEDS: MIDAZOLAM 100MG-0.9% NS 100ML 100ML BAG IV SCH (22:48)
[2022-04-09] MEDS: FENTANYL 2500MCG+NS 250ML IV.SOLN IV PRN (22:51)
[2022-04-10] VITALS (43 sets, daily range): BP systolic 95–149; BP diastolic 22–118
[2022-04-10] MEDS: SOLU-MEDROL 125MG VIAL IVP SCH ×3 (02:22→17:01)
[2022-04-10 04:22] LABS: ALANINE AMINOTRANSFERASE 29 U/L (12-78); ALBUMIN 1.9 g/dL (3.5-5.0); ASPARTATE AMINOTRANSFERASE 26 U/L (10-37); CARBON DIOXIDE 28 mmol/L (21-32); CHLORIDE 105 mmol/L (101-111); CREATININE 1.3 mg/dL (0.5-1.5); GLOMERULAR FILTR. RATE CALC 43 mL/min (>60); GLUCOSE,RANDOM 301 mg/dL (70-105); PHOSPHORUS 4.6 mg/dL (2.5-4.9); SODIUM SERUM 140 mmol/L (136-145); TOTAL PROTEIN, SERUM 4.7 g/dL (6.0-8.3); UREA NITROGEN, BLOOD 60 mg/dL (7-18)
[2022-04-10 04:34] LABS: CRP QUANTITATIVE < 2.00 mg/L (0.00-9.0)
[2022-04-10 04:41] LABS: BASOPHILS % (AUTO) 0.1 % (0.0-5.0); HEMATOCRIT 39.2 % (36-48); LYMPHOCYTES % (AUTO) 3.2 % (21.0-51.0); MEAN CORPUSCULAR HEMOGLOBIN 26.7 pg (27.0-33.0); MEAN CORPUSCULAR HGB CONC 30.4 g/dL (32.0-36.0); MEAN CORPUSCULAR VOLUME 87.9 fL (79-99); NEUTROPHILS % (AUTO) 94.7 % (40.0-77.0); NUCLEATED RED BLOOD CELLS 0.3 % (0.0-0.19); RED BLOOD CELL COUNT(AUTO) 4.46 MIL/uL (4.00-5.50); RED CELL DISTRIBUTION WIDTH 13.4 % (11.0-15.5); WHITE BLOOD COUNT (AUTO) 11.5 K/uL (4.8-10.8)
[2022-04-10 05:11] LABS: PLATELET COUNT (AUTO) 83 K/uL (130-400)
[2022-04-10] MEDS: INSULIN GLARGINE 100 UNITS/ML 10 ML VIAL SQ SCH ×2 (06:29→20:41)
[2022-04-10] MEDS: INSULIN HUMULIN R 100 UNIT/ML 3ML SQ SCH ×4 (06:31→20:42)
[2022-04-10] MEDS: DEXTROSE 5 % AND 0.9 % NACL 1,000 ML IV SCH (06:32)
[2022-04-10 08:32] LABS: ABG BASE EXCESS -3.2 mmol/L (-2.0-3.0); ABG HCO3 23.5 mmol/L (21.0-28.0); ABG PCO2 49 mmHg (32-45)
[2022-04-10] MEDS: ENOXAPARIN SODIUM 40 MG/0.4 ML SYRINGE SQ SCH ×2 (09:00→19:23)
[2022-04-10] MEDS: METOPROLOL SUCCINATE 25 MG TAB.SR.24H PO SCH (09:00)
[2022-04-10] MEDS: Cholecalciferol (Vitamin D3) (Vitamin D3) 1,000 UNIT PO SCH (09:00)
[2022-04-10] MEDS: PANTOPRAZOLE 40 MG/VIAL IVP SCH (09:05)
[2022-04-10] MEDS: MYCOPHENOLATE MOFETIL 250 MG CAPSULE PO SCH ×2 (09:06→20:39)
[2022-04-10] MEDS: MULTIVITAMIN TABLET PO SCH (09:06)
[2022-04-10] MEDS: TACROLIMUS 1 MG CAPSULE PO SCH ×2 (09:06→20:39)
[2022-04-10] MEDS: MAGNESIUM OXIDE 400 MG TABLET PO SCH (09:06)
[2022-04-10] MEDS: LACTOBACILLUS RHAMNOSUS GG 1 EACH CAP.SPRINK PO SCH (09:06)
[2022-04-10] MEDS: LINEZOLID 600 MG/ISO-OSM 300 ML IV SCH (11:26)
[2022-04-10] MEDS: MEROPENEM 1 GM VIAL IVP SCH (11:26)
[2022-04-10] MEDS ORDERED: GLUCAGON 1MG KIT 1 MG ML IM PRN (12:30)
[2022-04-10] MEDS ORDERED: DEXTROSE 50%-WATER 50 ML DISP.SYRIN IV PRN (12:30)
[2022-04-10] MEDS ORDERED: CISATRACURIUM BESYLATE 100 MG in 0.9%NACL 100ML 100 ML IV SCH (16:00)
[2022-04-10] MEDS: MIDAZOLAM 100MG-0.9% NS 100ML 100ML BAG IV SCH (16:36)
[2022-04-10 16:51] LABS: ABG BASE EXCESS -2.2 mmol/L (-2.0-3.0); ABG HCO3 23.1 mmol/L (21.0-28.0); ABG OXYGEN SATURATION 92.5 % (95.0-99.0); ABG PCO2 42 mmHg (32-45)
[2022-04-10] MEDS: CISATRACURIUM BESYLATE 100 MG in 0.9%NACL 100ML 100 ML IV SCH (17:01)
[2022-04-10] MEDS: FENTANYL 2500MCG+NS 250ML IV.SOLN IV PRN (19:50)
[2022-04-11] VITALS (73 sets, daily range): BP systolic 82–155; BP diastolic 16–97
[2022-04-11] MEDS: MEROPENEM 1 GM VIAL IVP SCH ×3 (00:10→23:26)
[2022-04-11] MEDS: LINEZOLID 600 MG/ISO-OSM 300 ML IV SCH ×3 (00:10→23:26)
[2022-04-11] MEDS: INSULIN HUMULIN R 100 UNIT/ML 3ML SQ SCH ×7 (00:20→23:46)
[2022-04-11] MEDS: SOLU-MEDROL 125MG VIAL IVP SCH ×3 (02:05→18:02)
[2022-04-11 03:41] LABS: HEMATOCRIT 42.6 % (36-48); MEAN CORPUSCULAR HEMOGLOBIN 26.1 pg (27.0-33.0); MEAN CORPUSCULAR HGB CONC 28.9 g/dL (32.0-36.0); MEAN CORPUSCULAR VOLUME 90.3 fL (79-99); NUCLEATED RED BLOOD CELLS 0.2 % (0.0-0.19); PLATELET COUNT (AUTO) 79 K/uL (130-400); RED BLOOD CELL COUNT(AUTO) 4.72 MIL/uL (4.00-5.50); RED CELL DISTRIBUTION WIDTH 13.5 % (11.0-15.5); WHITE BLOOD COUNT (AUTO) 12.2 K/uL (4.8-10.8)
[2022-04-11 03:55] LABS: ALANINE AMINOTRANSFERASE 34 U/L (12-78); ALBUMIN 2.1 g/dL (3.5-5.0); ASPARTATE AMINOTRANSFERASE 36 U/L (10-37); CARBON DIOXIDE 30 mmol/L (21-32); CHLORIDE 102 mmol/L (101-111); CREATININE 1.4 mg/dL (0.5-1.5); GLOMERULAR FILTR. RATE CALC 39 mL/min (>60); GLUCOSE,RANDOM 258 mg/dL (70-105); POTASSIUM 5.2 mmol/L (3.5-5.1); SODIUM SERUM 136 mmol/L (136-145); TOTAL PROTEIN, SERUM 5.3 g/dL (6.0-8.3); UREA NITROGEN, BLOOD 71 mg/dL (7-18)
[2022-04-11 03:59] LABS: CRP QUANTITATIVE < 2.00 mg/L (0.00-9.0)
[2022-04-11 04:08] LABS: LYMPHOCYTES % (MANUAL) 3 % (22-44); MAN.DIFF COMMENT-IMPRESSION MANUAL DIFFERENTIAL; MONOCYTES % (MANUAL) 4 % (2-9); PLATELET MORPHOLOGY COMMENT SLIGHTLY DECREASED; SEGMENTED NEUTROPHILS % 93 % (40-70)
[2022-04-11] MEDS: MAGNESIUM OXIDE 400 MG TABLET PO SCH (07:56)
[2022-04-11] MEDS: LACTOBACILLUS RHAMNOSUS GG 1 EACH CAP.SPRINK PO SCH (08:24)
[2022-04-11] MEDS: MYCOPHENOLATE MOFETIL 250 MG CAPSULE PO SCH ×2 (08:24→20:02)
[2022-04-11] MEDS: MULTIVITAMIN TABLET PO SCH (08:24)
[2022-04-11] MEDS: PANTOPRAZOLE 40 MG/VIAL IVP SCH (08:24)
[2022-04-11] MEDS: ENOXAPARIN SODIUM 40 MG/0.4 ML SYRINGE SQ SCH (08:25)
[2022-04-11] MEDS: METOPROLOL SUCCINATE 25 MG TAB.SR.24H PO SCH (08:25)
[2022-04-11] MEDS: TACROLIMUS 1 MG CAPSULE PO SCH ×2 (08:25→20:01)
[2022-04-11] MEDS: INSULIN GLARGINE 100 UNITS/ML 10 ML VIAL SQ SCH ×2 (08:28→20:00)
[2022-04-11] MEDS: Cholecalciferol (Vitamin D3) (Vitamin D3) 1,000 UNIT PO SCH (09:03)
[2022-04-11] MEDS: MIDAZOLAM 100MG-0.9% NS 100ML 100ML BAG IV SCH ×2 (09:51→22:22)
[2022-04-11] MEDS: FENTANYL 2500MCG+NS 250ML IV.SOLN IV PRN ×2 (12:40→23:25)
[2022-04-11] MEDS: CISATRACURIUM BESYLATE 100 MG in 0.9%NACL 100ML 100 ML IV SCH ×2 (13:24→23:25)
[2022-04-11 14:59] LABS: ABG BASE EXCESS -1.7 mmol/L (-2.0-3.0); ABG HCO3 25.2 mmol/L (21.0-28.0); ABG OXYGEN SATURATION 91.2 % (95.0-99.0); ABG PCO2 51 mmHg (32-45)
[2022-04-11] MEDS ORDERED: ALBUMIN (HUMAN) 25% 50 ML IV SCH (15:00)
[2022-04-11] MEDS: PHARMACY COMMUNICATION MISC SCH ×2 (15:30→15:37)
[2022-04-11] MEDS ORDERED: ALBUMIN (HUMAN) 25% 50 ML IV ONE (16:30)
[2022-04-11] MEDS: FUROSEMIDE 40MG VIAL IV SCH ×2 (16:37→22:22)
[2022-04-11] MEDS ORDERED: PHARMACY COMMUNICATION MISC SCH (18:30)
[2022-04-12] VITALS (41 sets, daily range): BP systolic 94–133; BP diastolic 24–76
[2022-04-12] MEDS: SOLU-MEDROL 125MG VIAL IVP SCH ×3 (02:53→17:28)
[2022-04-12 04:06] LABS: HEMATOCRIT 39.5 % (36-48); MEAN CORPUSCULAR HGB CONC 29.4 g/dL (32.0-36.0); MEAN CORPUSCULAR VOLUME 88.6 fL (79-99); NUCLEATED RED BLOOD CELLS 0.4 % (0.0-0.19); RED BLOOD CELL COUNT(AUTO) 4.46 MIL/uL (4.00-5.50); RED CELL DISTRIBUTION WIDTH 13.5 % (11.0-15.5); WHITE BLOOD COUNT (AUTO) 6.8 K/uL (4.8-10.8)
[2022-04-12 04:22] LABS: CREATININE 1.3 mg/dL (0.5-1.5); MAGNESIUM 3.2 mg/dL (1.80-2.40); POTASSIUM 4.1 mmol/L (3.5-5.1); TOTAL PROTEIN, SERUM 4.7 g/dL (6.0-8.3)
[2022-04-12] MEDS: INSULIN HUMULIN R 100 UNIT/ML 3ML SQ SCH ×6 (04:39→20:02)
[2022-04-12 07:49] LABS: ABG BASE EXCESS 1.8 mmol/L (-2.0-3.0); ABG OXYGEN SATURATION 87.6 % (95.0-99.0); ABG PCO2 50 mmHg (32-45)
[2022-04-12] MEDS: TACROLIMUS 1 MG CAPSULE PO SCH ×2 (07:56→20:04)
[2022-04-12] MEDS: PANTOPRAZOLE 40 MG/VIAL IVP SCH (07:56)
[2022-04-12] MEDS: MULTIVITAMIN TABLET PO SCH (07:56)
[2022-04-12] MEDS: MYCOPHENOLATE MOFETIL 250 MG CAPSULE PO SCH ×2 (07:56→20:04)
[2022-04-12] MEDS: INSULIN GLARGINE 100 UNITS/ML 10 ML VIAL SQ SCH ×2 (07:56→20:03)
[2022-04-12] MEDS: LACTOBACILLUS RHAMNOSUS GG 1 EACH CAP.SPRINK PO SCH (07:56)
[2022-04-12] MEDS: Cholecalciferol (Vitamin D3) (Vitamin D3) 1,000 UNIT PO SCH (07:57)
[2022-04-12] MEDS: METOPROLOL SUCCINATE 25 MG TAB.SR.24H PO SCH (07:57)
[2022-04-12] MEDS: CISATRACURIUM BESYLATE 100 MG in 0.9%NACL 100ML 100 ML IV SCH ×2 (10:05→23:23)
[2022-04-12] MEDS: FENTANYL 2500MCG+NS 250ML IV.SOLN IV PRN ×2 (10:06→23:23)
[2022-04-12] MEDS: LINEZOLID 600 MG/ISO-OSM 300 ML IV SCH (11:52)
[2022-04-12] MEDS: MEROPENEM 1 GM VIAL IVP SCH ×2 (11:52→23:44)
[2022-04-12] MEDS: MIDAZOLAM 100MG-0.9% NS 100ML 100ML BAG IV SCH (14:43)
[2022-04-12 15:25] LABS: INR 1.11 (0.85-1.15)
[2022-04-13] VITALS (43 sets, daily range): BP systolic 91–128; BP diastolic 33–78
[2022-04-13] MEDS: INSULIN HUMULIN R 100 UNIT/ML 3ML SQ SCH ×11 (00:10→20:00)
[2022-04-13] MEDS: SOLU-MEDROL 125MG VIAL IVP SCH ×3 (02:22→17:14)
[2022-04-13] MEDS: MIDAZOLAM 100MG-0.9% NS 100ML 100ML BAG IV SCH ×2 (02:30→15:26)
[2022-04-13] MEDS: CISATRACURIUM BESYLATE 100 MG in 0.9%NACL 100ML 100 ML IV SCH ×2 (04:41→14:02)
[2022-04-13 05:00] LABS: BASOPHILS % (AUTO) 0.1 % (0.0-5.0); EOSINOPHILS % (AUTO) 0.1 % (0.0-8.0); HEMATOCRIT 40.7 % (36-48); LYMPHOCYTES % (AUTO) 2.8 % (21.0-51.0); MEAN CORPUSCULAR HEMOGLOBIN 26.4 pg (27.0-33.0); MEAN CORPUSCULAR HGB CONC 29.7 g/dL (32.0-36.0); MEAN CORPUSCULAR VOLUME 88.9 fL (79-99); MONOCYTES % (AUTO) 1.5 % (3.0-13.0); NEUTROPHILS % (AUTO) 94.5 % (40.0-77.0); NUCLEATED RED BLOOD CELLS 0.5 % (0.0-0.19); PLATELET COUNT (AUTO) 58 K/uL (130-400); RED BLOOD CELL COUNT(AUTO) 4.58 MIL/uL (4.00-5.50); RED CELL DISTRIBUTION WIDTH 13.6 % (11.0-15.5); WHITE BLOOD COUNT (AUTO) 8.8 K/uL (4.8-10.8)
[2022-04-13 05:24] LABS: CREATININE 1.2 mg/dL (0.5-1.5); POTASSIUM 4.5 mmol/L (3.5-5.1)
[2022-04-13 07:20] LABS: ABG BASE EXCESS -0.1 mmol/L (-2.0-3.0); ABG HCO3 26.7 mmol/L (21.0-28.0); ABG OXYGEN SATURATION 88.8 % (95.0-99.0); ABG PCO2 53 mmHg (32-45)
[2022-04-13] MEDS: FENTANYL 2500MCG+NS 250ML IV.SOLN IV PRN (07:37)
[2022-04-13] MEDS: METOPROLOL SUCCINATE 25 MG TAB.SR.24H PO SCH (07:41)
[2022-04-13] MEDS: INSULIN GLARGINE 100 UNITS/ML 10 ML VIAL SQ SCH ×2 (07:57→21:00)
[2022-04-13] MEDS: MYCOPHENOLATE MOFETIL 250 MG CAPSULE PO SCH ×2 (08:07→20:10)
[2022-04-13] MEDS: MULTIVITAMIN TABLET PO SCH (08:07)
[2022-04-13] MEDS: Cholecalciferol (Vitamin D3) (Vitamin D3) 1,000 UNIT PO SCH (08:07)
[2022-04-13] MEDS: PANTOPRAZOLE 40 MG/VIAL IVP SCH (08:07)
[2022-04-13] MEDS: LACTOBACILLUS RHAMNOSUS GG 1 EACH CAP.SPRINK PO SCH ×2 (08:07→20:10)
[2022-04-13] MEDS: TACROLIMUS 1 MG CAPSULE PO SCH ×2 (08:07→20:10)
[2022-04-13] MEDS: MEROPENEM 1 GM VIAL IVP SCH (10:09)
[2022-04-13] MEDS ORDERED: GLUCAGON 1MG KIT 1 MG ML IV SCH (20:30)
[2022-04-13] MEDS ORDERED: FENTANYL 2500MCG+NS 250ML 250 ML IV ONE (20:44)
[2022-04-14] VITALS (78 sets, daily range): BP systolic 82–137; BP diastolic 21–113
[2022-04-14] MEDS: MEROPENEM 1 GM VIAL IVP SCH ×2 (00:17→11:03)
[2022-04-14] MEDS: METOCLOPRAMIDE 10 MG/2 ML VIAL IVP SCH ×3 (01:42→20:08)
[2022-04-14] MEDS: SOLU-MEDROL 125MG VIAL IVP SCH ×3 (01:43→17:11)
[2022-04-14] MEDS: CISATRACURIUM BESYLATE 100 MG in 0.9%NACL 100ML 100 ML IV SCH ×2 (02:01→13:32)
[2022-04-14] MEDS: MIDAZOLAM 100MG-0.9% NS 100ML 100ML BAG IV SCH ×2 (03:32→15:23)
[2022-04-14] MEDS: INSULIN HUMULIN R 100 UNIT/ML 3ML SQ SCH ×10 (04:00→21:01)
[2022-04-14 04:33] LABS: BASOPHILS % (AUTO) 0.1 % (0.0-5.0); HEMATOCRIT 38.9 % (36-48); LYMPHOCYTES % (AUTO) 3.9 % (21.0-51.0); MEAN CORPUSCULAR HEMOGLOBIN 26.1 pg (27.0-33.0); MEAN CORPUSCULAR HGB CONC 29.6 g/dL (32.0-36.0); MEAN CORPUSCULAR VOLUME 88.4 fL (79-99); MONOCYTES % (AUTO) 1.4 % (3.0-13.0); NEUTROPHILS % (AUTO) 93.6 % (40.0-77.0); NUCLEATED RED BLOOD CELLS 0.2 % (0.0-0.19); PLATELET COUNT (AUTO) 54 K/uL (130-400); RED CELL DISTRIBUTION WIDTH 13.9 % (11.0-15.5); WHITE BLOOD COUNT (AUTO) 8.8 K/uL (4.8-10.8)
[2022-04-14 05:15] LABS: ALANINE AMINOTRANSFERASE 70 U/L (12-78); ALBUMIN 1.7 g/dL (3.5-5.0); ASPARTATE AMINOTRANSFERASE 55 U/L (10-37); CARBON DIOXIDE 29 mmol/L (21-32); CHLORIDE 103 mmol/L (101-111); CREATININE 1.2 mg/dL (0.5-1.5); GLOMERULAR FILTR. RATE CALC 47 mL/min (>60); GLUCOSE,RANDOM 141 mg/dL (70-105); POTASSIUM 4.8 mmol/L (3.5-5.1); SODIUM SERUM 140 mmol/L (136-145); TOTAL PROTEIN, SERUM 4.4 g/dL (6.0-8.3)
[2022-04-14 05:56] LABS: UREA NITROGEN, BLOOD 101 mg/dL (7-18)
[2022-04-14 07:38] LABS: ABG BASE EXCESS 2.3 mmol/L (-2.0-3.0); ABG OXYGEN SATURATION 81.2 % (95.0-99.0); ABG PCO2 59 mmHg (32-45)
[2022-04-14] MEDS: MYCOPHENOLATE MOFETIL 250 MG CAPSULE PO SCH ×2 (08:01→20:08)
[2022-04-14] MEDS: TACROLIMUS 1 MG CAPSULE PO SCH ×2 (08:01→20:08)
[2022-04-14] MEDS: MULTIVITAMIN TABLET PO SCH (08:01)
[2022-04-14] MEDS: PANTOPRAZOLE 40 MG/VIAL IVP SCH (08:01)
[2022-04-14] MEDS: METOPROLOL SUCCINATE 25 MG TAB.SR.24H PO SCH (08:01)
[2022-04-14] MEDS: LACTOBACILLUS RHAMNOSUS GG 1 EACH CAP.SPRINK PO SCH ×2 (08:01→20:08)
[2022-04-14] MEDS: Cholecalciferol (Vitamin D3) (Vitamin D3) 1,000 UNIT PO SCH (08:35)
[2022-04-14] MEDS: FENTANYL 2500MCG+NS 250ML IV.SOLN IV SCH ×2 (08:40→20:02)
[2022-04-14] MEDS ORDERED: FUROSEMIDE 20MG VIAL IV STA (15:55)
[2022-04-14] MEDS ORDERED: FUROSEMIDE 40MG VIAL IV STA (15:55)
[2022-04-14] MEDS ORDERED: FUROSEMIDE 40MG VIAL ONE (16:00)
[2022-04-14] MEDS ORDERED: FUROSEMIDE 20MG VIAL ONE (16:00)
[2022-04-14 17:39] LABS: ABG BASE EXCESS 2.3 mmol/L (-2.0-3.0); ABG HCO3 29.8 mmol/L (21.0-28.0); ABG OXYGEN SATURATION 79.8 % (95.0-99.0); ABG PCO2 58 mmHg (32-45)
[2022-04-14] MEDS: INSULIN GLARGINE 100 UNITS/ML 10 ML VIAL SQ SCH (21:00)
[2022-04-15] VITALS (44 sets, daily range): BP systolic 92–126; BP diastolic 30–63
[2022-04-15] MEDS: MEROPENEM 1 GM VIAL IVP SCH ×3 (00:08→23:52)
[2022-04-15] MEDS: INSULIN HUMULIN R 100 UNIT/ML 3ML SQ SCH ×12 (00:25→23:34)
[2022-04-15] MEDS: CISATRACURIUM BESYLATE 100 MG in 0.9%NACL 100ML 100 ML IV SCH ×4 (01:51→20:50)
[2022-04-15 02:08] LABS: ABG BASE EXCESS 2.9 mmol/L (-2.0-3.0); ABG HCO3 29.9 mmol/L (21.0-28.0); ABG OXYGEN SATURATION 87.5 % (95.0-99.0); ABG PCO2 57 mmHg (32-45)
[2022-04-15] MEDS: SOLU-MEDROL 125MG VIAL IVP SCH ×3 (02:56→17:24)
[2022-04-15 04:48] LABS: HEMATOCRIT 38.5 % (36-48); LYMPHOCYTES % (AUTO) 4.6 % (21.0-51.0); MEAN CORPUSCULAR HGB CONC 29.6 g/dL (32.0-36.0); MEAN CORPUSCULAR VOLUME 87.7 fL (79-99); MONOCYTES % (AUTO) 1.6 % (3.0-13.0); NEUTROPHILS % (AUTO) 92.4 % (40.0-77.0); PLATELET COUNT (AUTO) 45 K/uL (130-400); RED BLOOD CELL COUNT(AUTO) 4.39 MIL/uL (4.00-5.50); RED CELL DISTRIBUTION WIDTH 14.3 % (11.0-15.5); WHITE BLOOD COUNT (AUTO) 6.4 K/uL (4.8-10.8)
[2022-04-15 04:58] LABS: CREATININE 1.2 mg/dL (0.5-1.5); POTASSIUM 5.1 mmol/L (3.5-5.1)
[2022-04-15] MEDS: MIDAZOLAM 100MG-0.9% NS 100ML 100ML BAG IV SCH (06:03)
[2022-04-15] MEDS: FENTANYL 2500MCG+NS 250ML IV.SOLN IV SCH ×2 (06:08→18:37)
[2022-04-15 07:19] LABS: ABG BASE EXCESS 0.5 mmol/L (-2.0-3.0); ABG HCO3 25.5 mmol/L (21.0-28.0); ABG OXYGEN SATURATION 92.8 % (95.0-99.0); ABG PCO2 42 mmHg (32-45)
[2022-04-15] MEDS: METOPROLOL SUCCINATE 25 MG TAB.SR.24H PO SCH (09:00)
[2022-04-15] MEDS: METOCLOPRAMIDE 10 MG/2 ML VIAL IVP SCH ×5 (09:10→21:21)
[2022-04-15] MEDS: MULTIVITAMIN TABLET PO SCH (09:10)
[2022-04-15] MEDS: LACTOBACILLUS RHAMNOSUS GG 1 EACH CAP.SPRINK PO SCH ×2 (09:10→20:46)
[2022-04-15] MEDS: TACROLIMUS 1 MG CAPSULE PO SCH ×2 (09:10→20:46)
[2022-04-15] MEDS: MYCOPHENOLATE MOFETIL 250 MG CAPSULE PO SCH ×2 (09:10→20:46)
[2022-04-15] MEDS: Cholecalciferol (Vitamin D3) (Vitamin D3) 1,000 UNIT PO SCH (09:11)
[2022-04-15] MEDS: PANTOPRAZOLE 40 MG/VIAL IVP SCH (09:11)
[2022-04-15] MEDS: INSULIN GLARGINE 100 UNITS/ML 10 ML VIAL SQ SCH ×2 (09:14→20:54)
[2022-04-15] MEDS ORDERED: FUROSEMIDE 40MG VIAL IV SCH (13:30)
[2022-04-15] MEDS: FUROSEMIDE 40MG VIAL IV SCH (15:56)
[2022-04-15] MEDS: BALSAM PERU/CASTOR OIL 60 GM TUBE TP SCH (21:20)
[2022-04-16] VITALS (35 sets, daily range): BP systolic 77–116; BP diastolic 25–65
[2022-04-16] MEDS: SOLU-MEDROL 125MG VIAL IVP SCH ×3 (01:48→18:07)
[2022-04-16] MEDS: FUROSEMIDE 40MG VIAL IV SCH ×2 (01:49→15:52)
[2022-04-16] MEDS: MIDAZOLAM 100MG-0.9% NS 100ML 100ML BAG IV SCH (02:02)
[2022-04-16] MEDS: INSULIN HUMULIN R 100 UNIT/ML 3ML SQ SCH ×10 (04:00→23:42)
[2022-04-16 04:08] LABS: HEMATOCRIT 39.9 % (36-48); MEAN CORPUSCULAR HEMOGLOBIN 25.9 pg (27.0-33.0); MEAN CORPUSCULAR HGB CONC 29.8 g/dL (32.0-36.0); MEAN CORPUSCULAR VOLUME 86.9 fL (79-99); PLATELET COUNT (AUTO) 37 K/uL (130-400); RED BLOOD CELL COUNT(AUTO) 4.59 MIL/uL (4.00-5.50); RED CELL DISTRIBUTION WIDTH 14.4 % (11.0-15.5); WHITE BLOOD COUNT (AUTO) 5.9 K/uL (4.8-10.8)
[2022-04-16 04:49] LABS: ALBUMIN 1.9 g/dL (3.5-5.0); CREATININE 1.2 mg/dL (0.5-1.5); POTASSIUM 5.1 mmol/L (3.5-5.1); TOTAL PROTEIN, SERUM 4.5 g/dL (6.0-8.3)
[2022-04-16 04:57] LABS: BAND NEUTROPHILS % (MANUAL) 5 % (0-2); LYMPHOCYTES % (MANUAL) 2 % (22-44); MAN.DIFF COMMENT-IMPRESSION MANUAL DIFFERENTIAL; MONOCYTES % (MANUAL) 3 % (2-9); SEGMENTED NEUTROPHILS % 90 % (40-70)
[2022-04-16 04:58] LABS: PLATELET MORPHOLOGY COMMENT MARKED DECREASE
[2022-04-16] MEDS: METOCLOPRAMIDE 10 MG/2 ML VIAL IVP SCH ×3 (05:00→20:55)
[2022-04-16] MEDS: INSULIN GLARGINE 100 UNITS/ML 10 ML VIAL SQ SCH ×2 (05:57→21:11)
[2022-04-16] MEDS: PANTOPRAZOLE 40 MG/VIAL IVP SCH (08:49)
[2022-04-16] MEDS: Cholecalciferol (Vitamin D3) (Vitamin D3) 1,000 UNIT PO SCH (09:00)
[2022-04-16] MEDS: METOPROLOL SUCCINATE 25 MG TAB.SR.24H PO SCH (09:00)
[2022-04-16] MEDS: MYCOPHENOLATE MOFETIL 250 MG CAPSULE PO SCH ×2 (10:27→20:55)
[2022-04-16] MEDS: MULTIVITAMIN TABLET PO SCH (10:27)
[2022-04-16] MEDS: LACTOBACILLUS RHAMNOSUS GG 1 EACH CAP.SPRINK PO SCH ×2 (10:27→20:55)
[2022-04-16] MEDS: MEROPENEM 1 GM VIAL IVP SCH ×2 (10:28→23:21)
[2022-04-16] MEDS: TACROLIMUS 1 MG CAPSULE PO SCH ×2 (10:28→20:55)
[2022-04-16] MEDS: BALSAM PERU/CASTOR OIL 60 GM TUBE TP SCH ×2 (10:31→21:11)
[2022-04-16 14:01] LABS: ABG BASE EXCESS 3.5 mmol/L (-2.0-3.0); ABG HCO3 28.8 mmol/L (21.0-28.0); ABG OXYGEN SATURATION 83.4 % (95.0-99.0); ABG PCO2 46 mmHg (32-45)
[2022-04-16] MEDS: CISATRACURIUM BESYLATE 100 MG in 0.9%NACL 100ML 100 ML IV SCH (23:38)
[2022-04-16] MEDS: FENTANYL 2500MCG+NS 250ML IV.SOLN IV SCH (23:41)
[2022-04-17] VITALS (68 sets, daily range): BP systolic 68–163; BP diastolic 20–79
[2022-04-17] MEDS: SOLU-MEDROL 125MG VIAL IVP SCH ×3 (02:00→17:12)
[2022-04-17] MEDS: FUROSEMIDE 40MG VIAL IV SCH (02:00)
[2022-04-17 03:54] LABS: ABG BASE EXCESS 2.5 mmol/L (-2.0-3.0); ABG HCO3 29.4 mmol/L (21.0-28.0); ABG OXYGEN SATURATION 85.6 % (95.0-99.0); ABG PCO2 55 mmHg (32-45)
[2022-04-17 04:18] LABS: HEMATOCRIT 41.1 % (36-48); LYMPHOCYTES % (AUTO) 4.3 % (21.0-51.0); MEAN CORPUSCULAR HEMOGLOBIN 25.7 pg (27.0-33.0); MEAN CORPUSCULAR HGB CONC 29.7 g/dL (32.0-36.0); MEAN CORPUSCULAR VOLUME 86.5 fL (79-99); MONOCYTES % (AUTO) 1.6 % (3.0-13.0); NEUTROPHILS % (AUTO) 93.4 % (40.0-77.0); NUCLEATED RED BLOOD CELLS 0.4 % (0.0-0.19); PLATELET COUNT (AUTO) 34 K/uL (130-400); RED BLOOD CELL COUNT(AUTO) 4.75 MIL/uL (4.00-5.50); RED CELL DISTRIBUTION WIDTH 14.6 % (11.0-15.5); WHITE BLOOD COUNT (AUTO) 5.5 K/uL (4.8-10.8)
[2022-04-17] MEDS: INSULIN HUMULIN R 100 UNIT/ML 3ML SQ SCH ×10 (04:19→23:46)
[2022-04-17 04:32] LABS: ALBUMIN 1.9 g/dL (3.5-5.0); CREATININE 1.2 mg/dL (0.5-1.5); PHOSPHORUS 7.5 mg/dL (2.5-4.9); POTASSIUM 5.6 mmol/L (3.5-5.1); TOTAL PROTEIN, SERUM 4.5 g/dL (6.0-8.3)
[2022-04-17] MEDS: INSULIN GLARGINE 100 UNITS/ML 10 ML VIAL SQ SCH ×2 (06:36→20:29)
[2022-04-17] MEDS: METOPROLOL SUCCINATE 25 MG TAB.SR.24H PO SCH (09:00)
[2022-04-17] MEDS: Cholecalciferol (Vitamin D3) (Vitamin D3) 1,000 UNIT PO SCH (09:00)
[2022-04-17] MEDS ORDERED: KAYEXALATE 15GM/60ML PO SCH (10:00)
[2022-04-17] MEDS ORDERED: INSULIN HUMULIN R 100 UNIT/ML 3ML IV ONE (10:00)
[2022-04-17] MEDS ORDERED: DEXTROSE 50%-WATER 50 ML DISP.SYRIN IV ONE (10:00)
[2022-04-17] MEDS: PANTOPRAZOLE 40 MG/VIAL IVP SCH (10:24)
[2022-04-17] MEDS: MEROPENEM 1 GM VIAL IVP SCH ×2 (10:24→23:42)
[2022-04-17] MEDS: METOCLOPRAMIDE 10 MG/2 ML VIAL IVP SCH ×3 (10:24→20:28)
[2022-04-17] MEDS: LACTOBACILLUS RHAMNOSUS GG 1 EACH CAP.SPRINK PO SCH ×2 (10:24→20:28)
[2022-04-17] MEDS: TACROLIMUS 1 MG CAPSULE PO SCH ×2 (10:25→20:28)
[2022-04-17] MEDS: SODIUM BICARB 50MEQ 50ML VIAL IV SCH (10:25)
[2022-04-17] MEDS: MULTIVITAMIN TABLET PO SCH (10:25)
[2022-04-17] MEDS: MYCOPHENOLATE MOFETIL 250 MG CAPSULE PO SCH ×2 (10:25→20:28)
[2022-04-17] MEDS: MIDAZOLAM 100MG-0.9% NS 100ML 100ML BAG IV SCH (10:26)
[2022-04-17] MEDS: BALSAM PERU/CASTOR OIL 60 GM TUBE TP SCH ×2 (10:29→20:30)
[2022-04-17] MEDS: FENTANYL 2500MCG+NS 250ML IV.SOLN IV SCH (14:33)
[2022-04-17] MEDS ORDERED: NOREPINEPHRIN 8MG/250ML NS PMX 250 ML IV ONE (14:55)
[2022-04-17] MEDS ORDERED: PHARMACY COMMUNICATION MISC SCH (15:00)
[2022-04-17] MEDS: NOREPINEPHRIN 8MG/250ML NS PMX 250 ML IV SCH (15:16)
[2022-04-17] MEDS: VASOPRESSIN 20 UNITS in 0.9%NACL 100ML 99 ML IV PRN (19:07)
[2022-04-18] VITALS (88 sets, daily range): BP systolic 83–136; BP diastolic 23–77
[2022-04-18] MEDS: SOLU-MEDROL 125MG VIAL IVP SCH ×3 (01:09→17:06)
[2022-04-18] MEDS: FENTANYL 2500MCG+NS 250ML IV.SOLN IV SCH ×2 (03:52→16:17)
[2022-04-18] MEDS: VASOPRESSIN 20 UNITS in 0.9%NACL 100ML 99 ML IV PRN ×3 (03:53→16:28)
[2022-04-18 03:55] LABS: BASOPHILS % (AUTO) 0.2 % (0.0-5.0); HEMATOCRIT 45.8 % (36-48); MEAN CORPUSCULAR HEMOGLOBIN 26.5 pg (27.0-33.0); MEAN CORPUSCULAR HGB CONC 29.7 g/dL (32.0-36.0); MEAN CORPUSCULAR VOLUME 89.3 fL (79-99); MONOCYTES % (AUTO) 2.6 % (3.0-13.0); NEUTROPHILS % (AUTO) 94.1 % (40.0-77.0); NUCLEATED RED BLOOD CELLS 3.3 % (0.0-0.19); PLATELET COUNT (AUTO) 58 K/uL (130-400); RED BLOOD CELL COUNT(AUTO) 5.13 MIL/uL (4.00-5.50); RED CELL DISTRIBUTION WIDTH 15.9 % (11.0-15.5); WHITE BLOOD COUNT (AUTO) 20.8 K/uL (4.8-10.8)
[2022-04-18] MEDS: INSULIN HUMULIN R 100 UNIT/ML 3ML SQ SCH ×8 (04:00→20:00)
[2022-04-18 04:53] LABS: ALBUMIN 2.3 g/dL (3.5-5.0); CREATININE 1.6 mg/dL (0.5-1.5); MAGNESIUM 4.1 mg/dL (1.80-2.40); PHOSPHORUS 8.5 mg/dL (2.5-4.9); TOTAL PROTEIN, SERUM 5.2 g/dL (6.0-8.3)
[2022-04-18] MEDS ORDERED: KAYEXALATE 15GM/60ML PO ONE ×2 (05:30→09:30)
[2022-04-18] MEDS: METOPROLOL SUCCINATE 25 MG TAB.SR.24H PO SCH (07:32)
[2022-04-18] MEDS ORDERED: DEXTROSE 50%-WATER 50 ML DISP.SYRIN IV ONE (08:00)
[2022-04-18] MEDS ORDERED: INSULIN HUMULIN R 100 UNIT/ML 3ML IV ONE (08:00)
[2022-04-18] MEDS ORDERED: NA ZIRCON CYCLOSIL(LOKELMA 10GM) PO SCH (08:00)
[2022-04-18] MEDS: PANTOPRAZOLE 40 MG/VIAL IVP SCH (08:28)
[2022-04-18 08:29] LABS: ABG BASE EXCESS -1.2 mmol/L (-2.0-3.0); ABG HCO3 27.1 mmol/L (21.0-28.0); ABG OXYGEN SATURATION 89.4 % (95.0-99.0); ABG PCO2 61 mmHg (32-45)
[2022-04-18] MEDS: TACROLIMUS 1 MG CAPSULE PO SCH (08:29)
[2022-04-18] MEDS: LACTOBACILLUS RHAMNOSUS GG 1 EACH CAP.SPRINK PO SCH ×2 (08:29→20:14)
[2022-04-18] MEDS: METOCLOPRAMIDE 10 MG/2 ML VIAL IVP SCH ×3 (08:29→20:14)
[2022-04-18] MEDS: MULTIVITAMIN TABLET PO SCH (08:29)
[2022-04-18] MEDS: MYCOPHENOLATE MOFETIL 250 MG CAPSULE PO SCH (08:29)
[2022-04-18] MEDS: INSULIN GLARGINE 100 UNITS/ML 10 ML VIAL SQ SCH ×2 (08:32→20:15)
[2022-04-18] MEDS: Cholecalciferol (Vitamin D3) (Vitamin D3) 1,000 UNIT PO SCH (08:32)
[2022-04-18] MEDS: BALSAM PERU/CASTOR OIL 60 GM TUBE TP SCH ×2 (08:33→20:15)
[2022-04-18] MEDS: SODIUM BICARB 50MEQ 50ML VIAL IV SCH ×2 (08:34→12:38)
[2022-04-18] MEDS: NOREPINEPHRIN 8MG/250ML NS PMX 250 ML IV SCH ×2 (09:03→21:48)
[2022-04-18] MEDS: MEROPENEM 1 GM VIAL IVP SCH (10:46)
[2022-04-18] MEDS ORDERED: VANCOMYCIN PROTOCOL PER PHARMACY IV SCH (15:30)
[2022-04-18] MEDS: MIDAZOLAM 100MG-0.9% NS 100ML 100ML BAG IV SCH (16:18)
[2022-04-18] MEDS: CISATRACURIUM BESYLATE 100 MG in 0.9%NACL 100ML 100 ML IV SCH (18:18)
[2022-04-19] VITALS (95 sets, daily range): BP systolic 72–149; BP diastolic 23–79
[2022-04-19] MEDS: MEROPENEM 1 GM VIAL IVP SCH ×3 (00:24→22:57)
[2022-04-19] MEDS: INSULIN HUMULIN R 100 UNIT/ML 3ML SQ SCH ×12 (00:45→23:57)
[2022-04-19] MEDS: SOLU-MEDROL 125MG VIAL IVP SCH ×3 (01:35→17:35)
[2022-04-19] MEDS: VASOPRESSIN 20 UNITS in 0.9%NACL 100ML 99 ML IV PRN ×3 (02:21→19:53)
[2022-04-19 03:43] LABS: BASOPHILS % (AUTO) 0.1 % (0.0-5.0); HEMATOCRIT 42.2 % (36-48); LYMPHOCYTES % (AUTO) 5.1 % (21.0-51.0); MEAN CORPUSCULAR HEMOGLOBIN 26.1 pg (27.0-33.0); MEAN CORPUSCULAR HGB CONC 28.9 g/dL (32.0-36.0); MEAN CORPUSCULAR VOLUME 90.2 fL (79-99); MONOCYTES % (AUTO) 2.7 % (3.0-13.0); NEUTROPHILS % (AUTO) 89.4 % (40.0-77.0); NUCLEATED RED BLOOD CELLS 6.1 % (0.0-0.19); PLATELET COUNT (AUTO) 37 K/uL (130-400); RED BLOOD CELL COUNT(AUTO) 4.68 MIL/uL (4.00-5.50); RED CELL DISTRIBUTION WIDTH 15.9 % (11.0-15.5); WHITE BLOOD COUNT (AUTO) 14.7 K/uL (4.8-10.8)
[2022-04-19 03:58] LABS: ALBUMIN 1.8 g/dL (3.5-5.0); CREATININE 1.7 mg/dL (0.5-1.5); POTASSIUM 5.3 mmol/L (3.5-5.1); TOTAL PROTEIN, SERUM 4.6 g/dL (6.0-8.3)
[2022-04-19 04:32] LABS: LYMPHOCYTES % (MANUAL) 4 % (22-44); MAN.DIFF COMMENT-IMPRESSION MANUAL DIFFERENTIAL; SEGMENTED NEUTROPHILS % 96 % (40-70)
[2022-04-19 04:33] LABS: PLATELET MORPHOLOGY COMMENT MARKED DECREASE
[2022-04-19] MEDS: FENTANYL 2500MCG+NS 250ML IV.SOLN IV SCH ×2 (04:43→18:03)
[2022-04-19] MEDS ORDERED: AMIODARONE 150MG VIAL ONE ×2 (05:10→05:14)
[2022-04-19] MEDS ORDERED: PHENYLEPHRINE HCL 10 MG/ML 5ML VIAL IV ONE (05:10)
[2022-04-19] MEDS ORDERED: AMIODARONE 900MG VIAL 540 MG in DEXTROSE 5%-WATER 300 ML IV ONE (05:30)
[2022-04-19] MEDS: AMIODARONE 900MG VIAL 150 MG in DEXTROSE 5%-WATER 100 ML IV SCH (05:50)
[2022-04-19] MEDS: AMIODARONE 900MG VIAL 360 MG in DEXTROSE 5%-WATER 200 ML IV SCH (06:00)
[2022-04-19 06:23] LABS: ABG HCO3 27.5 mmol/L (21.0-28.0); ABG PCO2 62 mmHg (32-45)
[2022-04-19] MEDS: NOREPINEPHRIN 8MG/250ML NS PMX 250 ML IV SCH ×2 (06:27→19:52)
[2022-04-19] MEDS: SODIUM BICARB 50MEQ 50ML VIAL IV SCH ×2 (07:53→09:25)
[2022-04-19] MEDS: METOPROLOL SUCCINATE 25 MG TAB.SR.24H PO SCH (07:54)
[2022-04-19] MEDS: Cholecalciferol (Vitamin D3) (Vitamin D3) 1,000 UNIT PO SCH (07:54)
[2022-04-19] MEDS: INSULIN GLARGINE 100 UNITS/ML 10 ML VIAL SQ SCH ×2 (08:09→21:00)
[2022-04-19] MEDS: PANTOPRAZOLE 40 MG/VIAL IVP SCH (08:10)
[2022-04-19] MEDS: MULTIVITAMIN TABLET PO SCH (08:11)
[2022-04-19] MEDS: METOCLOPRAMIDE 10 MG/2 ML VIAL IVP SCH ×3 (08:11→20:39)
[2022-04-19] MEDS: LACTOBACILLUS RHAMNOSUS GG 1 EACH CAP.SPRINK PO SCH ×2 (08:11→20:39)
[2022-04-19] MEDS: BALSAM PERU/CASTOR OIL 60 GM TUBE TP SCH ×2 (08:11→22:00)
[2022-04-19] MEDS: PHENYLEPHRINE HCL 100 MG in 0.9% NACL 250ML 250 ML IV SCH (11:39)
[2022-04-19] MEDS: CISATRACURIUM BESYLATE 100 MG in 0.9%NACL 100ML 100 ML IV SCH (17:04)
[2022-04-19] MEDS: MIDAZOLAM 100MG-0.9% NS 100ML 100ML BAG IV SCH (17:06)
[2022-04-20] VITALS (65 sets, daily range): BP systolic 93–167; BP diastolic 28–60
[2022-04-20] MEDS: INSULIN HUMULIN R 100 UNIT/ML 3ML SQ SCH ×11 (00:04→23:48)
[2022-04-20] MEDS: PHENYLEPHRINE HCL 100 MG in 0.9% NACL 250ML 250 ML IV SCH ×4 (00:14→20:52)
[2022-04-20] MEDS: SOLU-MEDROL 125MG VIAL IVP SCH ×3 (02:34→17:40)
[2022-04-20 04:28] LABS: BASOPHILS % (AUTO) 0.2 % (0.0-5.0); HEMATOCRIT 40.2 % (36-48); LYMPHOCYTES % (AUTO) 5.5 % (21.0-51.0); MEAN CORPUSCULAR HEMOGLOBIN 26.5 pg (27.0-33.0); MEAN CORPUSCULAR HGB CONC 29.1 g/dL (32.0-36.0); MONOCYTES % (AUTO) 1.8 % (3.0-13.0); NEUTROPHILS % (AUTO) 91.6 % (40.0-77.0); NUCLEATED RED BLOOD CELLS 10.8 % (0.0-0.19); PLATELET COUNT (AUTO) 26 K/uL (130-400); RED BLOOD CELL COUNT(AUTO) 4.42 MIL/uL (4.00-5.50); RED CELL DISTRIBUTION WIDTH 16.4 % (11.0-15.5); WHITE BLOOD COUNT (AUTO) 12.7 K/uL (4.8-10.8)
[2022-04-20 04:44] LABS: ALBUMIN 1.8 g/dL (3.5-5.0); CREATININE 2.1 mg/dL (0.5-1.5); TOTAL PROTEIN, SERUM 4.6 g/dL (6.0-8.3)
[2022-04-20 04:57] LABS: BAND NEUTROPHILS % (MANUAL) 1 % (0-2); LYMPHOCYTES % (MANUAL) 7 % (22-44); MONOCYTES % (MANUAL) 3 % (2-9); SEGMENTED NEUTROPHILS % 89 % (40-70)
[2022-04-20 04:58] LABS: MAN.DIFF COMMENT-IMPRESSION MANUAL DIFFERENTIAL; PLATELET MORPHOLOGY COMMENT MARKED DECREASE
[2022-04-20] MEDS: NOREPINEPHRIN 8MG/250ML NS PMX 250 ML IV SCH (05:10)
[2022-04-20] MEDS: AMIODARONE 900MG VIAL 150 MG in DEXTROSE 5%-WATER 100 ML IV SCH (05:30)
[2022-04-20] MEDS: FENTANYL 2500MCG+NS 250ML IV.SOLN IV SCH ×2 (06:53→19:32)
[2022-04-20] MEDS: INSULIN GLARGINE 100 UNITS/ML 10 ML VIAL SQ SCH ×2 (07:03→20:23)
[2022-04-20] MEDS: SODIUM BICARB 50MEQ 50ML VIAL IV SCH ×2 (08:00→09:10)
[2022-04-20] MEDS: AMIODARONE 900MG VIAL 540 MG in DEXTROSE 5%-WATER 300 ML IV SCH (08:19)
[2022-04-20] MEDS: Cholecalciferol (Vitamin D3) (Vitamin D3) 1,000 UNIT PO SCH (08:26)
[2022-04-20] MEDS: METOPROLOL SUCCINATE 25 MG TAB.SR.24H PO SCH (09:00)
[2022-04-20] MEDS: PANTOPRAZOLE 40 MG/VIAL IVP SCH (09:09)
[2022-04-20] MEDS: LACTOBACILLUS RHAMNOSUS GG 1 EACH CAP.SPRINK PO SCH ×2 (09:09→20:22)
[2022-04-20] MEDS: MULTIVITAMIN TABLET PO SCH (09:09)
[2022-04-20] MEDS: METOCLOPRAMIDE 10 MG/2 ML VIAL IVP SCH ×3 (09:09→20:22)
[2022-04-20] MEDS: BALSAM PERU/CASTOR OIL 60 GM TUBE TP SCH ×2 (09:10→21:00)
[2022-04-20 09:11] LABS: ABG BASE EXCESS -0.9 mmol/L (-2.0-3.0); ABG HCO3 26.8 mmol/L (21.0-28.0); ABG OXYGEN SATURATION 77.2 % (95.0-99.0); ABG PCO2 57 mmHg (32-45)
[2022-04-20] MEDS: MEROPENEM 1 GM VIAL IVP SCH ×2 (12:23→22:40)
[2022-04-20] MEDS: VASOPRESSIN 20 UNITS in 0.9%NACL 100ML 99 ML IV PRN ×2 (14:04→20:56)
[2022-04-20] MEDS: MIDAZOLAM 100MG-0.9% NS 100ML 100ML BAG IV SCH (18:10)
[2022-04-20 19:47] LABS: HEMATOCRIT 37.1 % (36-48); MEAN CORPUSCULAR HGB CONC 29.4 g/dL (32.0-36.0); MEAN CORPUSCULAR VOLUME 88.5 fL (79-99); NUCLEATED RED BLOOD CELLS 9.5 % (0.0-0.19); PLATELET COUNT (AUTO) 22 K/uL (130-400); RED BLOOD CELL COUNT(AUTO) 4.19 MIL/uL (4.00-5.50); RED CELL DISTRIBUTION WIDTH 16.6 % (11.0-15.5); WHITE BLOOD COUNT (AUTO) 7.2 K/uL (4.8-10.8)
[2022-04-20 20:19] LABS: BAND NEUTROPHILS % (MANUAL) 2 % (0-2); EOSINOPHILS % (MANUAL) 1 % (1-6); LYMPHOCYTES % (MANUAL) 4 % (22-44); MAN.DIFF COMMENT-IMPRESSION MANUAL DIFFERENTIAL; MONOCYTES % (MANUAL) 1 % (2-9); SEGMENTED NEUTROPHILS % 92 % (40-70)
[2022-04-20 20:20] LABS: PLATELET MORPHOLOGY COMMENT MARKED DECREASE
[2022-04-21] VITALS (24 sets, daily range): BP systolic 57–145; BP diastolic 15–59
[2022-04-21] MEDS: SOLU-MEDROL 125MG VIAL IVP SCH ×3 (00:50→16:45)
[2022-04-21] MEDS: AMIODARONE 900MG VIAL 360 MG in DEXTROSE 5%-WATER 200 ML IV SCH (02:41)
[2022-04-21] MEDS: INSULIN HUMULIN R 100 UNIT/ML 3ML SQ SCH ×8 (04:00→20:14)
[2022-04-21 05:09] LABS: BASOPHILS % (AUTO) 0.2 % (0.0-5.0); HEMATOCRIT 34.2 % (36-48); MEAN CORPUSCULAR HEMOGLOBIN 26.1 pg (27.0-33.0); MEAN CORPUSCULAR HGB CONC 29.8 g/dL (32.0-36.0); MEAN CORPUSCULAR VOLUME 87.5 fL (79-99); NEUTROPHILS % (AUTO) 92.4 % (40.0-77.0); NUCLEATED RED BLOOD CELLS 9.2 % (0.0-0.19); PLATELET COUNT (AUTO) 15 K/uL (130-400); RED BLOOD CELL COUNT(AUTO) 3.91 MIL/uL (4.00-5.50); RED CELL DISTRIBUTION WIDTH 16.5 % (11.0-15.5); WHITE BLOOD COUNT (AUTO) 5.4 K/uL (4.8-10.8)
[2022-04-21] MEDS: AMIODARONE 900MG VIAL 540 MG in DEXTROSE 5%-WATER 300 ML IV SCH ×2 (05:16→23:24)
[2022-04-21 05:23] LABS: ALBUMIN 1.5 g/dL (3.5-5.0); CREATININE 2.3 mg/dL (0.5-1.5); MAGNESIUM 3.4 mg/dL (1.80-2.40); POTASSIUM 4.8 mmol/L (3.5-5.1)
[2022-04-21] MEDS: AMIODARONE 900MG VIAL 150 MG in DEXTROSE 5%-WATER 100 ML IV SCH (05:30)
[2022-04-21] MEDS: PHENYLEPHRINE HCL 100 MG in 0.9% NACL 250ML 250 ML IV SCH ×3 (05:37→20:46)
[2022-04-21 06:50] LABS: ABG BASE EXCESS -0.3 mmol/L (-2.0-3.0); ABG HCO3 26.7 mmol/L (21.0-28.0); ABG OXYGEN SATURATION 81.8 % (95.0-99.0); ABG PCO2 55 mmHg (32-45)
[2022-04-21] MEDS: VASOPRESSIN 20 UNITS in 0.9%NACL 100ML 99 ML IV PRN ×2 (07:35→17:54)
[2022-04-21] MEDS: SODIUM BICARB 50MEQ 50ML VIAL IV SCH ×2 (08:24→09:33)
[2022-04-21] MEDS ORDERED: ALBUMIN (HUMAN) 25% 100 ML IV PRN (09:00)
[2022-04-21] MEDS: Cholecalciferol (Vitamin D3) (Vitamin D3) 1,000 UNIT PO SCH (09:00)
[2022-04-21] MEDS: FENTANYL 2500MCG+NS 250ML IV.SOLN IV SCH ×2 (09:20→20:48)
[2022-04-21] MEDS: PANTOPRAZOLE 40 MG/VIAL IVP SCH ×2 (09:33→20:07)
[2022-04-21] MEDS: METOCLOPRAMIDE 10 MG/2 ML VIAL IVP SCH ×3 (09:34→20:16)
[2022-04-21] MEDS: LACTOBACILLUS RHAMNOSUS GG 1 EACH CAP.SPRINK PO SCH ×2 (09:34→20:07)
[2022-04-21] MEDS: METOPROLOL SUCCINATE 25 MG TAB.SR.24H PO SCH (09:34)
[2022-04-21] MEDS: BALSAM PERU/CASTOR OIL 60 GM TUBE TP SCH ×2 (09:34→20:17)
[2022-04-21] MEDS: MULTIVITAMIN TABLET PO SCH (09:37)
[2022-04-21] MEDS: MEROPENEM 1 GM VIAL IVP SCH ×2 (13:16→22:32)
[2022-04-21] MEDS: CISATRACURIUM BESYLATE 100 MG in 0.9%NACL 100ML 100 ML IV SCH (17:45)
[2022-04-21] MEDS: MIDAZOLAM 100MG-0.9% NS 100ML 100ML BAG IV SCH (19:19)
[2022-04-22] VITALS (13 sets, daily range): BP systolic 56–148; BP diastolic 24–86
[2022-04-22] MEDS: SOLU-MEDROL 125MG VIAL IVP SCH ×2 (01:35→10:03)
[2022-04-22] MEDS: VASOPRESSIN 20 UNITS in 0.9%NACL 100ML 99 ML IV PRN (02:33)
[2022-04-22] MEDS: NOREPINEPHRIN 8MG/250ML NS PMX 250 ML IV SCH (02:44)
[2022-04-22] MEDS: PHENYLEPHRINE HCL 100 MG in 0.9% NACL 250ML 250 ML IV SCH (02:46)
[2022-04-22] MEDS: INSULIN HUMULIN R 100 UNIT/ML 3ML SQ SCH ×5 (04:00→08:00)
[2022-04-22] MEDS: AMIODARONE 900MG VIAL 150 MG in DEXTROSE 5%-WATER 100 ML IV SCH (05:30)
[2022-04-22 05:59] LABS: BASOPHILS % (AUTO) 0.3 % (0.0-5.0); HEMATOCRIT 32.1 % (36-48); MEAN CORPUSCULAR HEMOGLOBIN 26.3 pg (27.0-33.0); MEAN CORPUSCULAR HGB CONC 29.3 g/dL (32.0-36.0); MEAN CORPUSCULAR VOLUME 89.7 fL (79-99); MONOCYTES % (AUTO) 2.3 % (3.0-13.0); NUCLEATED RED BLOOD CELLS 22.1 % (0.0-0.19); PLATELET COUNT (AUTO) 75 K/uL (130-400); RED BLOOD CELL COUNT(AUTO) 3.58 MIL/uL (4.00-5.50); RED CELL DISTRIBUTION WIDTH 17.4 % (11.0-15.5); WHITE BLOOD COUNT (AUTO) 6.9 K/uL (4.8-10.8)
[2022-04-22 06:14] LABS: ALBUMIN 2.3 g/dL (3.5-5.0); CREATININE 2.7 mg/dL (0.5-1.5); POTASSIUM 4.9 mmol/L (3.5-5.1); TOTAL PROTEIN, SERUM 4.5 g/dL (6.0-8.3)
[2022-04-22] MEDS: Cholecalciferol (Vitamin D3) (Vitamin D3) 1,000 UNIT PO SCH (08:36)
[2022-04-22] MEDS: BALSAM PERU/CASTOR OIL 60 GM TUBE TP SCH (08:38)
[2022-04-22] MEDS: SODIUM BICARB 50MEQ 50ML VIAL IV SCH ×2 (08:44→10:03)
[2022-04-22] MEDS: PANTOPRAZOLE 40 MG/VIAL IVP SCH (08:44)
[2022-04-22] MEDS: MULTIVITAMIN TABLET PO SCH (08:44)
[2022-04-22] MEDS: METOPROLOL SUCCINATE 25 MG TAB.SR.24H PO SCH (08:44)
[2022-04-22] MEDS: METOCLOPRAMIDE 10 MG/2 ML VIAL IVP SCH (08:44)
[2022-04-22] MEDS: LACTOBACILLUS RHAMNOSUS GG 1 EACH CAP.SPRINK PO SCH (08:44)
[2022-04-22] MEDS: MEROPENEM 1 GM VIAL IVP SCH (10:03)
== END 2022-04-22 12:23 | DRG 870 ==
LOC: EDH 13:24 → EDHIP 15:57 → 2CH 03-29 10:50
PROVIDERS: ADMIT Hospitalist; ATTEND Hospitalist
PROC: XW033H5 Introduction of Tocilizumab into Peripheral Vein, Percutaneous Approach, New Technology Group 5 (ICD-10-PCS; principal; 2022-03-29)
PROC: 5A09357 Assistance with Respiratory Ventilation, Less than 24 Consecutive Hours, Continuous Positive Airway Pressure (ICD-10-PCS; 2022-04-01)
PROC: 5A09357 Assistance with Respiratory Ventilation, Less than 24 Consecutive Hours, Continuous Positive Airway Pressure (ICD-10-PCS; 2022-04-02)
PROC: 5A09357 Assistance with Respiratory Ventilation, Less than 24 Consecutive Hours, Continuous Positive Airway Pressure (ICD-10-PCS; 2022-04-03)
PROC: 5A0945A Assistance with Respiratory Ventilation, 24-96 Consecutive Hours, High Flow/Velocity Cannula (ICD-10-PCS; 2022-04-03)
PROC: 5A09357 Assistance with Respiratory Ventilation, Less than 24 Consecutive Hours, Continuous Positive Airway Pressure (ICD-10-PCS; 2022-04-05)
PROC: 5A09357 Assistance with Respiratory Ventilation, Less than 24 Consecutive Hours, Continuous Positive Airway Pressure (ICD-10-PCS; 2022-04-06)
PROC: 02HV33Z Insertion of Infusion Device into Superior Vena Cava, Percutaneous Approach (ICD-10-PCS; 2022-04-06)
PROC: 5A09357 Assistance with Respiratory Ventilation, Less than 24 Consecutive Hours, Continuous Positive Airway Pressure (ICD-10-PCS; 2022-04-07)
PROC: 5A1955Z Respiratory Ventilation, Greater than 96 Consecutive Hours (ICD-10-PCS; 2022-04-08)
PROC: 0BH17EZ Insertion of Endotracheal Airway into Trachea, Via Natural or Artificial Opening (ICD-10-PCS; 2022-04-08)
PROC: 30233R1 Transfusion of Nonautologous Platelets into Peripheral Vein, Percutaneous Approach (ICD-10-PCS; 2022-04-21)
DX: A41.9 Sepsis, unspecified organism (principal); I21.A1 Myocardial infarction type 2; U07.1 COVID-19; J12.82 Pneumonia due to coronavirus disease 2019; E43 Unspecified severe protein-calorie malnutrition; J80 Acute respiratory distress syndrome; K72.00 Acute and subacute hepatic failure without coma; R65.21 Severe sepsis with septic shock; J15.9 Unspecified bacterial pneumonia; D84.9 Immunodeficiency, unspecified; Z94.0 Kidney transplant status; G93.40 Encephalopathy, unspecified; D68.69 Other thrombophilia; N17.9 Acute kidney failure, unspecified; I13.0 Hypertensive heart and chronic kidney disease with heart failure and stage 1 through stage 4 chronic kidney disease, or unspecified chronic kidney disease; K92.2 Gastrointestinal hemorrhage, unspecified; I50.32 Chronic diastolic (congestive) heart failure; E11.22 Type 2 diabetes mellitus with diabetic chronic kidney disease; E11.65 Type 2 diabetes mellitus with hyperglycemia; Z80.9 Family history of malignant neoplasm, unspecified; Z82.49 Family history of ischemic heart disease and other diseases of the circulatory system; Z83.3 Family history of diabetes mellitus; Z88.2 Allergy status to sulfonamides; E78.5 Hyperlipidemia, unspecified; E87.5 Hyperkalemia; Z88.0 Allergy status to penicillin; Z88.8 Allergy status to other drugs, medicaments and biological substances; E66.01 Morbid (severe) obesity due to excess calories; E03.9 Hypothyroidism, unspecified; E78.00 Pure hypercholesterolemia, unspecified; I25.2 Old myocardial infarction; I46.9 Cardiac arrest, cause unspecified; I48.91 Unspecified atrial fibrillation; K59.00 Constipation, unspecified; Z66 Do not resuscitate; Z95.2 Presence of prosthetic heart valve; Z95.1 Presence of aortocoronary bypass graft; M19.90 Unspecified osteoarthritis, unspecified site; D69.6 Thrombocytopenia, unspecified; N18.30 Chronic kidney disease, stage 3 unspecified; Z79.899 Other long term (current) drug therapy
CPT/HCPCS: 31500; 36415; 36600; 71045; 74018; 80048; 80053; 80197; 81001; 82435; 82550; 82728; 82803; 82947; 82948; 83036; 83605; 83615; 83735; 83880; 84100; 84132; 84145; 84295; 84484; 85018; 85025; 85027; 85378; 85384; 85520; 85610; 85651; 85730; 86140; 86701; 86804; 86850; 86900; 86901; 87040; 87071; 87088; 87205; 87340; 87390; 87522; 87635; 87804; 93005; 93306; 93970; 94002; 94003; 94640; 94660; 99291; C1894; C9113; C9803; G0378; J0282; J1100; J1200; J1650; J1815; J1940; J1956; J2020; J2185; J2250; J2370; J2704; J2765; J2920; J2930; J3010; J3490; J7042; J7050; J7060; J7070; J7507; J7517; P9034; P9046; P9047